=== PATIENT | female | born 1925 | race Caucasian/White ===

== ENCOUNTER 2016-07-15 13:35 | Inpatient (IN) | payer MEDICARE, OTHER ==
[~2016-07-15] VITALS: Ht 162.6 cm; Wt 52.8 kg
[~2016-07-15 13:35] MED LIST: ASC500 PO; CALC1CAP22 PO; CAR120CD PO; CHOL200020 PO; CITA20TA PO; FOS70 PO; GABA100C PO; LEVO100T97 PO; LOSA100T29 PO; MULT-892 PO; OMEG100020 PO; REM15 PO
[2016-07-15 13:47] VITALS: BP 184/95; PULSE 76; O2SAT 95
[2016-07-15] MEDS ORDERED: LEVO88TA4 PO (13:49)
--- NOTE | 2016-07-15 15:04 | DRSVH ---
PROCEDURE: CT BRAIN WITHOUT CONTRAST ([id number]) INDICATIONS: fall TECHNIQUE: Noncontrast 4.5 mm thick angled axial sections acquired from the foramen magnum to the vertex, with c oronal reformats. COMPARISON: None. FINDINGS: Image quality: Diagnostic. Brain: There is no acute intra-axial or extra-axial hemorrhage. No extra-axial fluid collection is i dentified. There is no midline shift or mass effect. The orbits are grossly unremarkable. No large areas of diffusely decreased attenuation are evident within the brain to suggest diffuse cer ebral edema. Scattered focal and confluent areas of low attenuation within the periventricular and d eep white matter of the brain are noted. The ventricles and cortical sulci are prominent. Swelling is incidentally noted without an underlyin g superior orbital fracture evident. Bones: Calvarium and visualized facial bones are grossly intact. Rightward deviation of the bony na vicky septum is noted. There is mild mucosal thickening involving the left maxillary sinus and ethmoid air cells. Otherwise, the imaged paranasal sinuses and mastoid air cells are clear. Left periorbit al soft tissue IMPRESSION: 1. No acute intracranial hemorrhage. 2. Chronic small vessel ischemic changes and age related volume loss. 2. No displaced calvarial fractures. Dictated by: Inocente Noyola M.D. on 07/15/2016 at 13:59 Approved by: Inocente Noyola M.D. on 07/15/2016 at 14:02
[2016-07-15 15:10] LABS: BASOPHILS % (AUTO) 0.1 % (0-3); EOSINOPHILS % (AUTO) 0 % (0-5); MONOCYTES % (AUTO) 10.9 % (4-12); Mean Corpuscular Hemoglobin 29.3 pg (27.0-35.0); Mean Corpuscular Volume 85.1 fL (81-100); NEUTROPHILS % (AUTO) 80.7 % (40-74); Platelet Count 203 bil/L (150-400)
--- NOTE | 2016-07-15 15:12 | ED.REPORT ---
HPI-Trauma Minor / Fall Date of Service July 15, 2016 ED Provider: Francisco Ndiaye MD 89 year old female with a hx of mild dementia, Afib, HTN, hypothyroid and not on blood thinners who presents to the ER via EMS following a fall at home. Pt was found on the ground by her family this morning. It is unknown when she fell last night/this morning as the patient is able to live independently at home. The patient states that it was a mechanical trip and fall and denies LOC. She has also had multiple other falls. Her last one was 2 days ago where she fell walking to her mailbox. Her granddaughter found her at the time. Following the fall she developed bruising to her L forearm and L periorbital area. Pt denies any pain. Her family noticed that she has been increasingly weak in the last two days. Pt sometimes uses a walker and cane as needed, but yesterday even with the walker, she was unable to get out of bed on her own. Nursing Notes Stated Complaint: GLF Chief Complaint: Multiple Trauma/Fall Nursing Notes Reviewed: Yes Allergies: Coded Allergies: FRANCISCO J Inhibitors (Verified Allergy, Unknown, 07/15/16) atenolol (Verified Allergy, Unknown, 07/15/16) atorvastatin (Verified Allergy, Unknown, 07/15/16) hydroxychloroquine (Verified Allergy, Unknown, 07/15/16) Scheduled Ascorbic Acid (Vitamin C) 1,000 Mg Tab.chew 1,000 MG PO QAM Calcium Carbonate (Calcium Carbonate) 600 Mg Tablet 600 MG PO QAM Cholecalciferol (Vitamin D3) (Vitamin D3) 2,000 Unit Tablet 2,000 UNIT PO QAM Citalopram (Citalopram) 10 Mg Tablet 10 MG PO QAM Cyanocobalamin (Vitamin B12) 500 Mcg Tablet 500 MCG PO QAM Denosumab (Prolia) 60 Mg/1 Ml Syringe 60 MG SQ [id number] DUE IN AUGUST 2016 Diltiazem ER (Diltiazem ER) 120 Mg Cap.er.24h 120 MG PO QAM Glucosamine/D3/Boswellia Lisha (Glucosamine Complex Tablet) 1 Each Tablet 1 EACH PO QAM Levothyroxine (Levothyroxine) 88 Mcg Tablet 88 MCG PO QAM Losartan Potassium (Losartan Potassium) 100 Mg Tablet 100 MG PO QAM Multivit with Calcium,Iron,Min (Therapeutic M) 1 Each Tablet 1 EACH PO QAM [place]-3/Dha/Epa/Fish Oil (Fish Oil 1,000 mg Softgel) 1 Each Capsule 1 EACH PO QAM General Time Seen by MD: 15:11 Chief Complaint Fall Hx Obtained From: Patient, Other family..., EMS Arrived By: Ambulance Symptom Duration: Since onset Severity: Current: No pain currently Associated with: Denies: Fever, Headache, Loss of consciousness Similar Sx Previous: Yes Past Medical History Past Medical History Arthritis Diverticulitis Not on anticoagulants Mild dementia Reports: Hypertension Reports: Atrial fibrillation, Depression, Thyroid disease Past Surgical History Reports: Cataract surgery, Cholecystectomy Reports: Tubal ligation Smoking History Never Smoker Social History Alcohol Use: Denies alcohol use Drug Use: Denies drug use Other Social History: Good social support, Lives alone Review of Systems Constitutional: Denies: Fever Musculoskeletal: Denies: Extremity pain, Neck pain Skin: Reports Bruising Neurologic: Reports: Weakness, Denies: Change LOC, Headache Complete sys rev & neg: except as marked. Physical Exam Initial Vital Signs Vital Signs (First) Date Time Temp Pulse Resp B/P Pulse Ox O2 Delivery O2 Flow Rate FiO2 07/15/16 13:47 36.2 76 184/95 95 Room Air Initial VS: Reviewed ENT: Conjunctiva normal, No scleral icterus Respiratory: Breath sounds normal, Clear to auscultation, No respiratory distress Abdomen / GI: Soft, Non-tender Extremities: Vascular intact, Neuro intact Skin: Warm, Dry, No cyanosis Neurologic: Alert, Oriented, Nonfocal Psychiatric: Mood/affect normal, Behavior normal, Normal thought content General/Constitutional: Awake, Alert Neck: Atraumatic, Supple, Full range of motion, No midline vertebral tend Head / Eyes: Normocephalic, PERRL L subacute contusion L eye. Cardiovascular: Heart rate NL, Regular rhythm, Heart sounds NL, No gallop, No murmurs, No rubs, Cap refill not delayed, Peripheral circulation NL Skin: Warm, Dry Some diffuse bruises to all extemities and L abdomen. 1cm superficial abrasion to L buttock with surrounding erythema. subacute bruising of L arm. Neurologic: Oriented X3, Speech NL, No motor deficits, No sensory deficits, CN II - XII intact Interpretation & Diagnostics Lab Results Interpretation Result Diagram: 07/15/16 1500 07/15/16 1500 Test 07/15/16 15:00 07/15/16 16:00 07/15/16 16:13 White Blood Count 14.3th/mm3 (3.8-10.1) Red Blood Count 3.82mil/mm3 (3.90-5.20) Hemoglobin 11.2g/dL (12.0-15.6) Hematocrit 32.5% (35.0-46.0) Mean Corpuscular Volume 85.1fL (81-100) Mean Corpuscular Hemoglobin 29.3pg (27.0-35.0) Mean Corpuscular Hemoglobin Concent 34.5% (32.0-37.0) Red Cell Distribution Width 12.6% (12.3-15.4) Platelet Count 203bil/L (150-400) Neutrophils (%) (Auto) 80.7% (40-74) Lymphocytes (%) (Auto) 8.0% (14-46) Monocytes (%) (Auto) 10.9% (4-12) Eosinophils (%) (Auto) 0% (0-5) Basophils (%) (Auto) 0.1% (0-3) Prothrombin Time 11.5sec (8.1-12.5) Prothromb Time International Ratio 1.07ratio Sodium Level 123mEq/L (134-144) Potassium Level 3.0mEq/L (3.5-5.2) Chloride Level 83mEq/L (97-108) Carbon Dioxide Level 25mmol/L (18-29) Blood Urea Nitrogen 14mg/dL (8-27) Creatinine 0.47mg/dL (0.57-1.00) Estimat Glomerular Filtration Rate 179mL/min (>59) Glucose Level 92mg/dL (60-99) Calcium Level 9.4mg/dL (8.5-10.1) Total Bilirubin 2.2mg/dL (0.0-1.2) Aspartate Amino Transf (AST/SGOT) 61U/L (0-50) Alanine Aminotransferase (ALT/SGPT) 19U/L (0-32) Alkaline Phosphatase 48U/L (25-165) Troponin T < 0.010ug/L (0.0-0.011) Total Protein 7.6g/dL (6.4-8.4) Albumin 3.9g/dL (3.4-5.0) Prealbumin 14mg/dL (20-40) Thyroid Stimulating Hormone (TSH) 5.930uIU/mL (0.450-4.500) Hold Vasquez Top Tube Received (Received) Urine Random Sodium 61mEq/L Urine Color Yellow (YELLOW) Urine Appearance Hazy (CLEAR,HAZY) Urine pH 6.0 (5.0-8.0) Urine Specific [place] 1.020 (1.003-1.035) Urine Protein 100mg/dL (NEG,TRACE) Urine Glucose (UA) Negativemg/dL (NEGATIVE) Urine Ketones Tracemg/dL (NEGATIVE) Urine Occult Blood Moderate (NEGATIVE) Urine Nitrite Negative (NEGATIVE) Urine Bilirubin Negative (NEGATIVE) Urine Urobilinogen Normalmg/dL (NORMAL) Urine Leukocyte Esterase Negative (NEGATIVE) Urine RBC 3-10/hpf (0-2) Urine WBC 6-10/hpf (0-5) Urine Epithelial Cells Occasional/hpf (NONE-MOD) Urine Crystals None seen (NONE SEEN) Urine Bacteria Many/hpf (NONE-FEW) Urine Hyaline Casts None/lpf (NONE) Urine Granular Casts None seen (NONE SEEN) Urine Waxy Casts None seen (NONE SEEN) Urine Red Blood Cell Casts None seen (NONE SEEN) Urine White Blood Cell Casts None seen (NONE SEEN) Urine Mucus None seen (None Seen) Urine Trichomonas None seen (NONE SEEN) Urine Yeast None (NONE SEEN) Urine Culture Reflexed Indicated General Lab Results Interp 1: Labs reviewed ECG Interpretation ECG Interpretation: [place] Interval 259 qTC 544 Time: 14:51 Interpreted by: ED physician Normal ECG Interpretation: Normal rate (71) CT Head Interpretation IMPRESSION: 1. No acute intracranial hemorrhage. 2. Chronic small vessel ischemic changes and age related volume loss. 2. No displaced calvarial fractures. Dictated by: Inocente Noyola M.D. on 07/15/2016 at 13:59 Study: Head CT no contrast Interpretation / Wet Read by: Interpret - Radiologist Re-Eval/Medical Decision Med Decision/Clinical Course 89-year-old female history of dementia but lives autonomously at home and is functional per family presenting with weakness and ground-level fall. The report she has had increasing weakness in the last couple days. Today they found her on the ground unable to get up. She did not lose consciousness per patient or family. They report increased falls last couple days. They also report is been difficult for her to get up last couple days which is new for her. CT head no acute pathology. She has some subcutaneous bruises on all extremities but is not complaining of any pain at this time. Her abdominal exam is benign. Urine with UTI. She has leukocytosis. She will be admitted for a UTI and weakness. Rocephin given, culture sent. Re-Evaluation/Progress #1: Time of Eval: 15:55 Re-Evaluation/Progress Note: Obtained additional history from family. Updated of imaging and labs. Awaiting further lab results. Re-Evaluation/Progress #2: Time of Eval: 16:29 Re-Evaluation/Progress Note: Code status discussed. Pt is DNR. Consultation : Referral / Consult Name: Param Maher MD Consulted With: Hospitalist Call Returned at: 18:14 [employer] Gener[employer] Brush Maker: Will see patient, Agrees with eval, Agrees with plan, Accepts admit Counseled Regarding: Diagnosis, Lab results, Need for admission Discharge & Departure Impression: Primary Impression: UTI (urinary tract infection) Urinary tract infection type: site unspecified Hematuria presence: without hematuria Qualified Code: N39.0 - Urinary tract infection, site not specified Additional Impressions: Weakness Hyponatremia Disposition: ADMITTED TO HOSPITAL Discharge Condition All VS Reviewed: Yes Referrals: La Cardona (PCP) [place] Attestation Portions of this note were transcribed by Lavern Mcgovern. I, (Dr. Francisco Lugo) personally performed the history, physical exam and medical decision- making; I reviewed and confirmed the accuracy of the information in the transcribed note. Signed by: Lavern Mcgovern. [place], 07/15/2016, 1919 copies to: La Cardona Ben M MD July 15, 2016 15:12 Lavern Mcgovern July 15, 2016 15:22
[2016-07-15] MEDS ORDERED: 0.9% Sodium Chloride 500 ML IV ONE (16:23)
[2016-07-15] MEDS ORDERED: cefTRIAXone Inj 2,000 MG in Dextrose 5% Minibag Plus 50 ML IV ONE (16:25)
[2016-07-15 16:27] LABS: APPEARANCE,URINE HAZY (CLEAR,HAZY); COLOR,URINE YELLOW (YELLOW); OCCULT BLOOD,URINE MODERATE (NEGATIVE); UROBILINOGEN,URINE NORMAL (NORMAL)
[2016-07-15 16:35] LABS: INR 1.07 ratio
[2016-07-15] MEDS ORDERED: CYAN500 PO (17:15)
[2016-07-15] MEDS ORDERED: FISH1CAP15 PO (17:15)
[2016-07-15] MEDS ORDERED: DILT-17 PO (17:15)
[2016-07-15] MEDS ORDERED: CITA10TA9 PO (17:15)
[2016-07-15] MEDS ORDERED: MULT-140 PO (17:15)
[2016-07-15] MEDS ORDERED: MIRT15TA6 PO (17:15)
[2016-07-15] MEDS ORDERED: LOSA100T29 PO (17:15)
[2016-07-15] MEDS ORDERED: DENO60DI SQ (17:15)
[2016-07-15] MEDS ORDERED: GLUC-104 PO (17:15)
[2016-07-15] MEDS ORDERED: CALC600T20 PO (17:44)
[2016-07-15] MEDS ORDERED: ASCO100089 PO (17:44)
[2016-07-15] MEDS ORDERED: CHOL200025 PO (17:44)
[2016-07-15] MEDS ORDERED: GLUC-167 PO (17:45)
[2016-07-15] MEDS ORDERED: OMEG-38 PO (17:45)
[2016-07-15] MEDS ORDERED: Ondansetron 2 mg/mL 2 mL Inj IVPUSH PRN (17:55)
[2016-07-15] MEDS ORDERED: Alum-Mag Hydrox-Simeth 30 mL Suspension PO PRN (17:55)
[2016-07-15] MEDS ORDERED: Polyethylene Glycol (PEG) 17 Gm Powder PO PRN (17:55)
[2016-07-15 18:17] VITALS: BP 166/71; PULSE 72; RESP 18; O2SAT 98
[2016-07-15 18:52] VITALS: BP 161/78; PULSE 68; RESP 16; O2SAT 99
--- NOTE | 2016-07-15 19:09 | NUR ---
Arrived on Unit Patient arrived on floor from ER in stable condition at 1840. Patient ambulated from stretcher to bed with 1 person assist. VSS. A&Ox3. Multiple bruises on the left side of the body. Multiple falls over the last few days. Dime size sore on buttock. Patient on P500. Call light and tray table within reach. Will continue to monitor patient hourly.
--- NOTE | 2016-07-15 20:52 | PCM.HPMED ---
Subjective Date of Service July 15, 2016 Primary Provider: Admitting Physician: Param Maher MD Primary Care Physician: La Cardona Attending Physician: Param Maher MD Review of Systems: Gen.: No fevers chills weight loss weight gain Eyes: no visual disturbances or blurring vision HEENT: No nose/throat drainage, no pain in ears or throat, no hearing loss Lymph: No lymph nodes noted Cardiac: No chest pain, orthopnea, PND, palpitations , pedal edema or dyspnea on exertion Pulmonary: no cough, wheezing or bringing up of sputum GI: No anorexia nausea vomiting blood or black in the stool : no dysuria hematuria urinary frequency or decrease in urine output Musculoskeletal: Joint swelling no joint pain no new muscle aches or back pain Neuro: No syncope, seizures no loss of consciousness no new focal weakness, numbness or tingling Psychiatric: New new anxiety insomnia or depression Endocrine: No new heat or cold intolerances polyuria or polydipsia Hematology: No lymphadenopathy or easy bleeding or bruising noted skin: No new rashes, stasis dermatitis Allergies Coded Allergies: FRANCISCO J Inhibitors (Verified Allergy, Unknown, 07/15/16) atenolol (Verified Allergy, Unknown, 07/15/16) atorvastatin (Verified Allergy, Unknown, 07/15/16) hydroxychloroquine (Verified Allergy, Unknown, 07/15/16) Home Medications Ascorbic Acid (Vitamin C) 1,000 Mg Tab.chew 1,000 MG PO QAM Calcium Carbonate (Calcium Carbonate) 600 Mg Tablet 600 MG PO QAM Cholecalciferol (Vitamin D3) (Vitamin D3) 2,000 Unit Tablet 2,000 UNIT PO QAM Citalopram (Citalopram) 10 Mg Tablet 10 MG PO QAM Cyanocobalamin (Vitamin B12) 500 Mcg Tablet 500 MCG PO QAM Denosumab (Prolia) 60 Mg/1 Ml Syringe 60 MG SQ [id number] DUE IN AUGUST 2016 Diltiazem ER (Diltiazem ER) 120 Mg Cap.er.24h 120 MG PO QAM Glucosamine/D3/Boswellia Lisha (Glucosamine Complex Tablet) 1 Each Tablet 1 EACH PO QAM Levothyroxine (Levothyroxine) 88 Mcg Tablet 88 MCG PO QAM Losartan Potassium (Losartan Potassium) 100 Mg Tablet 100 MG PO QAM Multivit with Calcium,Iron,Min (Therapeutic M) 1 Each Tablet 1 EACH PO QAM [place]-3/Dha/Epa/Fish Oil (Fish Oil 1,000 mg Softgel) 1 Each Capsule 1 EACH PO QAM PMH 1. Hypertension. 2. Hypothyroidism. 3. Systemic lupus erythematosus. 4. Rheumatoid arthritis. 5. Vitamin B 12 deficiency. 6. Osteoporosis. 7. History of atrial fibrillation/flutter in 2007. 8. History of iron-deficiency anemia. 9. Gastroesophageal reflux disease. 10. Depression. 11. History of colon diverticulosis found on colonoscopy 3 years ago. 12. Hyperlipidemia. 13. Osteoarthritis. Past Surgical History s/p kyphoplasty 2010 Reports: Cataract surgery, Cholecystectomy Reports: Tubal ligation Smoking History Never Smoker Social History Alcohol Use: Denies alcohol use Drug Use: Denies drug use Other Social History: Good social support, Lives alone Social History Hx Alcohol Use: No Hx Substance Use: No Hx Tobacco Use: No Smoking Status: Never Smoker Exam Vital Signs Vital Sign - Last Date Time Temp Pulse Resp B/P Pulse Ox O2 Delivery O2 Flow Rate FiO2 07/15/16 18:52 36.7 68 16 161/78 99 Room Air Exam Gen.- A+ O 3 no apparent distress. Frail elderly female sitting up in bed having dinner Eyes- open conjunctiva clear, pupils equal nonicteric large bruise over/around left eye, patient is intact to gross exam Mouth- oral mucosa moist, no exudate ENT- ears normal, nose normal Neck- supple/trach midline CVS- RRR no murmur or gallop Lungs- CTA GI- NABS/NT soft Musc- moving 4 no obvious deformity Tenderness left shoulder Neuro- cranial nerves II through XII intact to gross examination, nonfocal Skin- warm and dry, no rashes/lesions/wounds noted Psych- pleasant and appropriate, kind of quiet, memory is not great allows others to speak for her Lab and Diagnostics Result Diagram: 07/15/16 1500 07/15/16 1500 X-Rays, CTs and MRIs CT head without contrast IMPRESSION: 1. No acute intracranial hemorrhage. 2. Chronic small vessel ischemic changes and age related volume loss. 2. No displaced calvarial fractures. Dictated by: Inocente Noyola M.D. on 07/15/2016 at 13:59 12-lead ECG . Sinus rhythm rate 71, QTC 544 ms . Prolonged LA interval . Probable left atrial enlargement . Probable LVH with secondary repol abnrm . Inferior infarct, old . Prolonged QT interval . No previous ECG available for comparison Assessment & Plan 89-year-old female living independently with a great deal of family support fell 2 days ago, has not done well since then and was found down today 07/15. She for her part has a bruise on her face but does not feel any worse for the wear and tear. #Acute? Metabolic Encephalopathy-CT scan of head unremarkable checking B12 and TSH, may simply be from dehydration/UTI #Fall/weakness-PT evaluation and therapy, care management for discharge planning she may need more support. A large family though that is readily available -Check orthostatic hypotension #hyponatremia-NS, check urine sodium, regular diet #Hypokalemia-replacing IV nothing by mouth and checking magnesium #prot caloric malnutirion #UTI versus Urine colonization 6-10 WBCs-treated with Rocephin 1 g IV every 24 beginning 07/15. She does have weakness, hyponatremia and some complaint of urinary frequency the other day HTN-continue home diltiazem and losartan. p afib-Will follow on telemetry patient is not anticoagulated Prophylaxis DVT with SCDs and enoxaparin, GI not indicated From home independent living she is limited intervention she does not want to be intubated however CPR and cardioversion are desired. Param Maher MD July 15, 2016 20:52
[2016-07-15] MEDS ORDERED: 0.9% NaCl + KCl 20 mEq/L 1,000 ML IV SCH (20:55)
--- NOTE | 2016-07-15 21:52 | NUR ---
X Ray Pt. off floor at 2147 to x-ray. Transported via bed by [facility].
[2016-07-15 22:20] VITALS: PULSE 66
--- NOTE | 2016-07-15 22:26 | NUR ---
Pt. back from X-Ray Pt. came back from X-Ray onto floor at 2215.
[2016-07-16] VITALS (7 sets, daily range): BP systolic 144–160; BP diastolic 65–75; PULSE 55–71; RESP 16–18; O2SAT 93–98
--- NOTE | 2016-07-16 03:29 | NUR ---
Activity Pt. denies pain. Pt. ambulates well to bathroom SBA. Pt. has severe bruising on left side. Meiplex applied on dime sized abrasion on buttocks. Turning and skin care being implemented. Will continue to monitor.
[2016-07-16 05:33] LABS: BASOPHILS % (AUTO) 0.2 % (0-3); EOSINOPHILS % (AUTO) 0.6 % (0-5); MONOCYTES % (AUTO) 14.2 % (4-12); Mean Corpuscular Volume 85.6 fL (81-100); NEUTROPHILS % (AUTO) 67.3 % (40-74); Platelet Count 208 bil/L (150-400)
[2016-07-16 06:01] LABS: Magnesium 1.5 mg/dL (1.6-2.6)
--- NOTE | 2016-07-16 09:07 | DRSVH ---
PROCEDURE: X-RAY LEFT SHOULDER, MINIMUM TWO VIEWS ([id number]) INDICATIONS: fall/cough TECHNIQUE: 3 views of the shoulder were acquired. COMPARISON: [facility], CR, SHOULDER MIN 2VW (LT), 09/17/2008, 14:37. FINDINGS: Bones: No definite acute fractures or dislocations. There is an old healed fracture involving the g reater tuberosity. Mild joint narrowing with periarticular osteophyte formation. No suspicious bony lesions. Visualized ribs appear intact. Interstitial opacities present involving the left lung base. Soft tissues: No suspicious soft tissue calcifications. Vascular calcifications indicate atheroscler osis. IMPRESSION: 1. Old healed fracture involving the greater tuberosity of the proximal humerus. 2. Mild acromioclavicular and glenohumeral joint degeneration. 3. Interstitial opacities involving the left lung base. Dictated by: Joe IBANEZ Interpreted: Sanchez Houston MD on 07/16/2016 at 9:03 Transcribed by: FACUNDO on 07/16/2016 at 9:07 Approved by: Sanchez Houston M.D. on 07/16/2016 at 12:03
--- NOTE | 2016-07-16 09:18 | DRSVH ---
Caution: Report not yet finalized and possibly incomplete! PROCEDURE: X-RAY CHEST, TWO VIEWS ([id number]) INDICATIONS: fall/cough TECHNIQUE: 2 views of the chest were acquired. COMPARISON: [facility], , CHEST 2VW, 10/25/2011, 11:54. FINDINGS: Surgical changes and devices: None. Lungs and pleura: No pleural effusions or pneumothorax. Interstitial opacities involve the left jatin g base otherwise lungs are clear. Mediastinum: Mediastinal contours are normal. Heart size is normal. Bones and chest wall: No suspicious bony abnormalities. Soft tissues appear unremarkable. Multiple healed right posterior-lateral rib fractures redemonstrated. Prior kyphoplasty at the L1 level. IMPRESSION: Left basilar interstitial disease suspicious for pneumonia. Dictated by: Joe IBANEZ Interpreted: Sanchez Houston MD on 07/16/2016 at 9:16 Transcribed by: FACUNDO on 07/16/2016 at 9:18
[2016-07-16] MEDS: cefTRIAXone Inj 1,000 MG in Dextrose 5% Minibag Plus 50 ML IV SCH (11:17)
[2016-07-16] MEDS ORDERED: Potassium Chloride 20 mEq SR Tablet PO ONE (11:25)
[2016-07-16] MEDS ORDERED: Magnesium Sulf 4 Gm/100 mL H2O 4 GM in IV Premix 1 EACH IV ONE (11:25)
--- NOTE | 2016-07-16 11:27 | PCM.PNMED ---
Subjective Date of Service July 16, 2016 Subjective Needing to go to the bathroom "again". Other than that no chest pain, no dyspnea, no nausea vomiting, no trouble with pain Exam Vital Signs Vital Sign - Last Date Time Temp Pulse Resp B/P Pulse Ox O2 Delivery O2 Flow Rate FiO2 07/16/16 08:00 64 07/16/16 04:54 36.8 18 158/74 97 Room Air Intake and Output 07/15/16 07/15/16 07/16/16 Cumulative From/Thru 15:00 23:00 07:00 07/15/16 13:35 - 07/16/16 05:56 Intake Total 500 ml 982 ml 1482 ml Balance 500 ml 982 ml 1482 ml Intake Oral 300 ml 300 ml IV Total 500 ml 682 ml 1182 ml # Voids 3 3 # Bowel Movements 0 0 Exam Gen.- A+ O 3 no apparent distress. Frail elderly female sitting up in bed having dinner Eyes- open conjunctiva clear, pupils equal nonicteric large bruise over/around left eye, ENT- ears normal, nose normal, hearing intact Neck- supple/trach midline CVS- RRR Lungs- normal rate nonlabored GI- Musc- moving 4 no obvious deformity Neuro- cranial nerves II through XII intact to gross examination, nonfocal Skin- warm and dry, no rashes/lesions/wounds noted Psych- pleasant and appropriate, sleepy little confused this morning Lab and Diagnostics Result Diagram: 07/16/16 0445 07/16/16 0445 X-Rays, CTs and MRIs CXR Left basilar interstitial disease suspicious for pneumonia. 07/16 L shoulder 2 views 07/16 IMPRESSION: 1. Old healed fracture involving the greater tuberosity of the proximal humerus. 2. Mild acromioclavicular and glenohumeral joint degeneration. 3. Interstitial opacities involving the left lung base suspicious for pneumonia. CT head without contrast IMPRESSION: 1. No acute intracranial hemorrhage. 2. Chronic small vessel ischemic changes and age related volume loss. 2. No displaced calvarial fractures. Dictated by: Inocente Noyola M.D. on 07/15/2016 at 13:59 12-lead ECG . Sinus rhythm rate 71, QTC 544 ms . Prolonged [place] interval . Probable left atrial enlargement . Probable LVH with secondary repol abnrm . Inferior infarct, old . Prolonged QT interval . No previous ECG available for comparison Assessment & Plan 89-year-old female living independently with a great deal of family support fell 2 days ago, has not done well since then and was found down today 07/15. She for her part has a bruise on her face but does not feel any worse for the wear and tear. 07/15 therapy evaluation social work. Work on correcting electrolytes as noted below. There is evidence that perhaps she is probably not eating as well as she could, possibly aspirating and falling more than is actually known. #Cough possible right lower lobe pneumonia by CXR-Rocephin 07/16 I will add azithromycin 07/16-07/19 and get a swallow evaluation 07/16 #hyponatremia, SIADH-NS, urine sodium 61 07/16, regular diet 1.5 L fluid restriction 07/16 continue to monitor #anemia-Hg 10.1 probably believed delusional overnight 07/16 continue to monitor #Acute? Metabolic Encephalopathy-CT scan of head unremarkable checking B12 and TSH, may simply be from dehydration/UTI #Fall/weakness-PT evaluation and therapy, care management for discharge planning she may need more support. A large family though that is readily available -Check orthostatic hypotension -Old fracture left shoulder by x-ray 07/16 #Hypokalemia-replacing IV by mouth and checking magnesium, 3.3 07/16 #Hypomagnesemia- 1.5 07/16 replace and monitor #prot caloric malnutirion #UTI versus Urine colonization 6-10 WBCs-treated with Rocephin 1 g IV every 24 beginning 07/15-. HTN-continue home diltiazem and losartan. p afib-follow telemetry patient is not anticoagulated. No reports of arrhythmia -07/16am Prophylaxis DVT with SCDs and enoxaparin, GI not indicated From home independent living she is limited intervention she does not want to be intubated however CPR and cardioversion are desired. VTE Mechanical Devices: Intermittant Pneumatic CD Param Maher MD July 16, 2016 11:27
[2016-07-16] MEDS ORDERED: 0.9% Sodium Chloride 250 ML ONE (13:14)
--- NOTE | 2016-07-16 13:47 | NUR ---
Evaluation completed. Please go to "Notes" then click on "Assessments and Notes" (bottom left corner of screen). Then select appropriate discipline tab on top of screen.
--- NOTE | 2016-07-16 13:57 | NUR ---
student nurse note Patient is alert and oriented x2; pt is a poor historian. VS stable, tele, pt on room air, labs show low potassium, sodium, and magnesium. Patient is on a 1500ml/day fluid restriction. Patient is a high fall risk and was found on the ground before admission to hospital. Bruising on left side of body (head, shoulder, arm, and hip) due to fall. Skin abrasions on right and left buttocks present before admission. Patient wears glasses to read and see, but complaining that glasses aren't working. History of Afib, but tele shows sinus rhythm during shift. Son and daughter in room and assisting with memory and pt history. IV antibiotics running and LR stopped this morning for fluid restriction. Plan is to continue antibiotics and restore electrolyte balance.
--- NOTE | 2016-07-16 14:45 | NUR ---
Pain/Mentation/Cough Patient reports pain for first time this shift. Paged MD for Tylenol. Patient is pleasantly confused, mildly impulsive, but calls appropriately at most times. Patient has persistent, dry, non productive cough. Family states it has been increasing in frequency to "almost gagging at times" over the last few months. Paged MD for [facility] Eval recommendation.
[2016-07-16] MEDS ORDERED: GLUCOSAMINE PO SCH (15:10)
[2016-07-16] MEDS ORDERED: D3 PO SCH (15:10)
[2016-07-16] MEDS ORDERED: BOSWELLIA SERRA PO SCH (15:10)
[2016-07-16] MEDS ORDERED: [UNRECOGNIZED DRUG - OTHER] PO SCH (15:10)
--- NOTE | 2016-07-16 16:14 | NUR ---
Social Work- Initial Assessment Data: See Initial Assessment. Pt is a 89 year old female admitted 07/15/16 for UTI, Weakness, Hyponatremia per H&P. Pt's insurance is [employer]. Pt's PCP is YANA Hurtado. NOK is Cory, son, and daughter Funmilayo. Pt's readmit score is 3. SYSTEM ANALYST received routine physician consult order, met with pt and Funmilayo [phone], at bedside regarding discharge plan. Pt alert and oriented x3, though was dozing periodically during conversation and was agreeable to SYSTEM ANALYST speaking with Funmilayo. Pt resides in [facility] in a home where she is largely independent with ADLs, though Funmilayo is already anticipating pt will need additional support in the home. Pt has no HH or SNF history. Pt has no LTC or VA benefits. Pt uses a cane at baseline, has a walker available for use if needed. Pt has railings by her stairs, grab bars in the showers. Pt does not drive. Pt had no DPOA/Advance Directive on file, SW encouraged pt and family to bring a copy into the hospital. Pt's daughter is interested in caregivers in the home, as they have already discussed goals of keeping the pt in her home as long as possible. SYSTEM ANALYST discussed caregiving resources, provided Senior Resource Guide to Funmilayo. SYSTEM ANALYST oriented Funmilayo to [facility], including Meals on Wheels, caregiving, financial assistance, etc. Funmilayo and Cory are going to look into private pay caregiving companies, SYSTEM ANALYST encouraged them to begin this process while pt is hospitalized. SYSTEM ANALYST discussed possibility of SNF discharge, Funmilayo is agreeable. SYSTEM ANALYST to follow up with pt and family regarding PT recommendations. Pt likely to discharge to SNF versus private pay caregivers, SW will continue to follow. Assessment: Pt who may require SNF at discharge vs. private pay caregivers. Plan: Senior Resource Guide Provided. SYSTEM ANALYST to follow up with pt and family regarding SNF recommendations, Pt likely to discharge to SNF versus private pay caregivers, SW will continue to follow. MARY Alvarenga Addendum: 07/16/16 at 1618 by SAHIL GONZALEZ SS Amended: Links added.
--- NOTE | 2016-07-16 16:25 | NUR ---
Wound Note Pressure ulcer protocol received, patient seen at bedside. 89 yo female fell at home, bruised and ecchymotic at left forehead and left brow, bruises also noted at left hip and flank. Presents with skin tear at left buttock that is 1.5 cm x 1.5 cm, edges are nearly approximated. No other skin issues noted. Nursing can change dressing (adhesive foam) PRN.
--- NOTE | 2016-07-16 21:57 | NUR ---
PAIN/ACTIVITY: During assessment pt. resting in bed with no c/o pain or discomfort. Later on she requested help to get to the toilet, able to ambulate slowly with the FWW and one person SBA, Voiding without difficulty. No BM at this time. C/o pain when getting in and OOB otherwise pt. comfortable. Given 650 mg of PO Tylenol. On going care.
[2016-07-17] VITALS (7 sets, daily range): BP systolic 144–165; BP diastolic 66–84; PULSE 55–73; RESP 16–18; O2SAT 95–98
[2016-07-17 04:50] LABS: BASOPHILS % (AUTO) 0.3 % (0-3); MONOCYTES % (AUTO) 14.8 % (4-12); Mean Corpuscular Hemoglobin 29.3 pg (27.0-35.0); Mean Corpuscular Volume 86.1 fL (81-100); NEUTROPHILS % (AUTO) 65.2 % (40-74); Platelet Count 224 bil/L (150-400)
[2016-07-17] MEDS ORDERED: Potassium Chloride Inj 30 MEQ in Dextrose 5% 500 ML IV ONE (07:45)
[2016-07-17] MEDS: cefTRIAXone Inj 1,000 MG in Dextrose 5% Minibag Plus 50 ML IV SCH (08:03)
[2016-07-17] MEDS: Omega-3-Acid Ethyl Esters 1 Gm Capsule PO SCH (08:13)
--- NOTE | 2016-07-17 10:20 | NUR ---
Talked with nurse re options of either oral meds or need for PICC. Pt is taking fluids very well (has fluid restriction). The K+ is extremely irritating to the patient. RN to consult .
--- NOTE | 2016-07-17 10:31 | NUR ---
LATRICE signed. Ramya Baker EXHAUSTER
--- NOTE | 2016-07-17 10:42 | NUR ---
IV therapy Called IV therapy r/t pain when running IV potassium to current IV access to right fore arm. per IV therapy recommendation: either PICC line or oral medications." Son at bed side. Paged doctor Cain and notified r/t no access due to IV infiltration and very fragile skin, per orders," oral medications" and aware that no IV access due to increased pain when potassium running. patient and son aware.
--- NOTE | 2016-07-17 10:43 | NUR ---
SNF choice list provided. Ramya Baker MSW
--- NOTE | 2016-07-17 11:12 | NUR ---
Social Work- Readiness for Discharge Data: EMR reviewed. Pt is on day 2 of hospitalization for UTI, weakness, hyponatremia per H&P. Pt is not medically stable for discharge, anticipate 1-2 more days. PT has seen pt 07/16, recommending SNF at this time to progress safety with functional mobility, strength and balance. Pt not able to participate with PT today due to critically low K+ level. CARBIDE TOOL DIE MAKER spoke wit pt and son Cory at bedside this morning regarding discharge plan, PT recommendations. Pt agreeable to rehab stay at SNF. SNF CHOICE LIST PROVIDED. Pt recalled that she has been to [facility] about 7 years ago after a back surgery. Family requested time to consider choices, will call CARBIDE TOOL DIE MAKER. CARBIDE TOOL DIE MAKER received call from daughter Funmilayo regarding pt's SNF choices after consultation with family. 1st choice is [facility]. 2nd choice is [facility]. SW faxed referral, provided access. Paperwork in chart, PASRR in folder. Pt to discharge to SNF pending acceptance, SW will continue to follow. Assessment: Pt for whom SNF is medically necessary. Plan: Referrals made to [facility] and [facility]. Paperwork in chart, PASRR in folder. Pt to discharge to SNF pending acceptance, SW will continue to follow. MARY Alvarenga Addendum: 07/17/16 at 1232 by SAHIL GONZALEZ CARBIDE TOOL DIE MAKER received call from Katiana, ina at [facility], stating that they are able to accept pt with MD Roman to follow. CARBIDE TOOL DIE MAKER updated pt, family, and [facility] regarding pt's decision. All updated and agreeable to plan. Ramya Gonzalez CARBIDE TOOL DIE MAKER
--- NOTE | 2016-07-17 11:17 | NUR ---
HTN BP 165/67, pulse 71. cook paged Dr. Barlow. awaiting call back. patient is asymptomatic.
--- NOTE | 2016-07-17 12:23 | NUR ---
New orders New orders received for Losartan and potassium . BP prior to losartan given 150/68. continue to monitor.
--- NOTE | 2016-07-17 13:52 | PCM.PNMED ---
Subjective Date of Service July 17, 2016 Subjective Patient says she is feeling stronger. No chest pain, no dyspnea, no nausea or vomiting Exam Vital Signs Vital Sign - Last Date Time Temp Pulse Resp B/P Pulse Ox O2 Delivery O2 Flow Rate FiO2 07/17/16 12:31 36.4 71 18 165/84 98 Room Air Intake and Output 07/16/16 07/16/16 07/17/16 Cumulative From/Thru 15:00 23:00 07:00 07/15/16 13:35 - 07/17/16 05:39 Intake Total 230 ml 500 ml 2212 ml Output Total 400 ml 400 ml Balance 230 ml 100 ml 1812 ml Intake Oral 230 ml 500 ml 1030 ml IV Total 1182 ml Output Urine Total 400 ml 400 ml # Voids 4 7 # Bowel Movements 0 0 Exam Gen.- A+ O 3 no apparent distress. Frail elderly female sitting up in bed Eyes- open conjunctiva clear, pupils equal nonicteric large bruise over/around left eye, ENT- ears normal, nose normal, hearing intact Neck- supple/trach midline CVS- RRR no murmur/gallop Lungs- normal rate nonlabored, shallow CTA GI- NABS/NT Musc- moving 4 no obvious deformity Neuro- cranial nerves II through XII intact to gross examination, nonfocal Skin- warm and dry, no rashes/lesions/wounds noted Psych- pleasant and appropriate, seemed relatively lucid Lab and Diagnostics Result Diagram: 07/17/1644607/17/16446 X-Rays, CTs and MRIs CXR Left basilar interstitial disease suspicious for pneumonia. 07/16 L shoulder 2 views 07/16 IMPRESSION: 1. Old healed fracture involving the greater tuberosity of the proximal humerus. 2. Mild acromioclavicular and glenohumeral joint degeneration. 3. Interstitial opacities involving the left lung base suspicious for pneumonia. CT head without contrast IMPRESSION: 1. No acute intracranial hemorrhage. 2. Chronic small vessel ischemic changes and age related volume loss. 2. No displaced calvarial fractures. Dictated by: Inocente Noyola M.D. on 07/15/2016 at 13:59 12-lead ECG . Sinus rhythm rate 71, QTC 544 ms . Prolonged RI interval . Probable left atrial enlargement . Probable LVH with secondary repol abnrm . Inferior infarct, old . Prolonged QT interval . No previous ECG available for comparison Assessment & Plan 89-year-old female living independently with a great deal of family support fell 2 days ago, has not done well since then and was found down today 07/15. She for her part has a bruise on her face but does not feel any worse for the wear and tear. 07/16 therapy evaluation social work. Work on correcting electrolytes as noted below. There is evidence that perhaps she is probably not eating as well as she could, possibly aspirating and falling more than is actually known. 07/17 hyponatremia continuing to improve with fluid restriction, mentation and strength improving. We will transition to by mouth treatment for pneumonia. Planning for discharge 07/18 #Cough possible right lower lobe pneumonia by CXR-Rocephin 07/16 I will add azithromycin 07/16-07/19 and get a swallow evaluation 07/16. Stop Rocephin, start cefuroxime 07/17 #hyponatremia, SIADH-NS, urine sodium 61 07/16, regular diet 1.5 L fluid restriction 07/16 continue to monitor #anemia-Hg 10.1 probably believed delusional overnight 07/16 continue to monitor #Acute? Metabolic Encephalopathy-CT scan of head unremarkable checking B12 and TSH, may simply be from dehydration/UTI #Fall/weakness-PT evaluation and therapy, care management for discharge planning she may need more support. A large family though that is readily available -Check orthostatic hypotension -Old fracture left shoulder by x-ray 07/16 #Hypokalemia-replacing IV by mouth and checking magnesium, 3.3 07/16 #Hypomagnesemia- 1.5 07/16 replace and monitor #prot caloric malnutirion #UTI versus Urine colonization 6-10 WBCs-treated with Rocephin 1 g IV every 24 beginning 07/15-. HTN-continue home diltiazem and losartan. p afib-follow telemetry patient is not anticoagulated. No reports of arrhythmia -07/16am Prophylaxis DVT with SCDs and enoxaparin, GI not indicated From home independent living she is limited intervention she does not want to be intubated however CPR and cardioversion are desired. VTE Mechanical Devices: Intermittant Pneumatic CD Param Maher MD July 17, 2016 13:51
--- NOTE | 2016-07-17 15:13 | NUR ---
NUTRITION ASSESSMENT: ASSESS:89 YO female admitted with UTI, weakness and hyponatremia, status post fall 07/15. There is evidence that she is probably not eating as well as she could, possibly aspirating and falling more than is actually known. Swallow evaluation pending at this time. PO intake excellent, 75-100% trays. There is a notation of malnutrition. The patient has lost 4.55 kg x 4 years, 3 months. Sales Representative Education Courses noting skin tear L. buttock. Hyponatremia improved with fluid restriction. Mentation and strength are noted to be improved as well. Code status: full. PMHx:HTN, hypothyroid, lupus, RA, osteoporosis, A-fib, CRISTIAN, GERD, depression, diverticulitis, dyslipidemia. DIET:General, fluid restriction, pending swallow evaluation. PO intake 75-100% trays. LABS: Reviewed. Na 127, K+ 3.2, Chloride 88. MEDICATIONS: Reviewed. Synthroid, MVI. NUTRITION FOCUSED PHYSICAL ASSESSMENT: GI symptoms / stool: No BM x 2 D.Ayo: 18. Skin Integrity: Skin tear L. buttock. ANTHROPOMETRICS: Current Wt: 50.0 kgBMI: 18.0 kg/m2.Admit weight: 50.0 kg. IBW: 54.5 kg (91.7% IBW) ESTIMATED NEEDS (UNDERWEIGHT): Calories: 1500 - 1750 kcal (30 - 35 kcal / kg BW) Protein: 60 - 75 g protein (1.2 - 1.5 g / kg BW) Fluid: Approx. 1250 mL (25 mL / kg BW) NUTRITION DIAGNOSIS: 1)Chewing / swallowing difficulties related to chronic aspiration, as evidenced by requirement for swallow evaluation. 2) Inadequate oral intake related to inability to consume sufficient energy, as evidenced by 4.55 kg weight loss x 4 years, 3 months. INTERVENTION: 1) Will add supplements to trays once Speech Therapy determines texture tolerance. MONITOR/EVALUATE: Diet advance / tolerance, PO intake, labs, GI/nutrition status. Follow up per moderate nutrition risk guidelines.
--- NOTE | 2016-07-17 18:22 | NUR ---
Student nurse shift note Pt A&OX3, poor historian and repeats. Pleasant and appropriate in conversation. 1PA-FWW to bathroom. Pt tele due to history of Afib, tele team relayed "sinus rhythm in the 80's non conductive PAC". VS stable, but pt hypertensive until administered home med of Losartan. BP went from 165/67, to 148/66. Patient complaining of IV discomfort early in shift, so Doctor ordered for it to be DC'ed. Patient then switched to PO meds and has no current IV access.Skin tears to sacrum. Dressing s/d/i and no dressing change during shift. Patient on 1500ml.day fluid restriction and complaining of dry mouth; pt maxed out day shift fluid allotment and has been given oral swabs to assist. Labs are still off with WBC's improving but at 10.6, Sodium low at 127, potassium low at 3.2, and magnesium is now in range. Plan is to have pt discharge to SNF tomorrow afternoon. Patient's son and daughter live nearby and visit often and able to assist with history. Addendum: 07/17/16 at 1836 by WILMER TRUONG Pain- pt report moderate pain to left shoulder at rest and upon movement. Administered Tylenol PO and patient reports no pain. Skin- Bruising from head to toe on left side due to recent fall (2nd to UTI).
--- NOTE | 2016-07-17 18:24 | NUR ---
Mentation Patient is alert with mild confusion and forgetful. Able to make needs known. C/o pain to left shoulder and PRN Tylenol given by student nurse with effective results. patient up for all meals in chair. Sebastian bed and chair alarm on for safety due to most recent fall and history of falls. Ambulates using FWW to the bathroom with out difficulty breathing or shortness of breath. Stable oxygen room air. Deneis chest pain or chest discomfort. No sign and symptoms of respiratory distress noted. Dressing to sacrum is clean dry and intact. Notified doctor Cain for elevated BP and anti hypertensive given as ordered and follow up BP 148/66. patient is asymptomatic. Currently eating dinner in chair and family at bed side. stable mood. Continue to monitor pain, Vital signs, safety, and comfort.
[2016-07-18] VITALS (8 sets, daily range): BP systolic 106–160; BP diastolic 55–78; PULSE 65–81; RESP 16–20; O2SAT 96–99
--- NOTE | 2016-07-18 02:16 | NUR ---
PAIN; tylenol for c/o headache with relief. Up to bathroom to void per walker/standby assist. Confused at times. Easily oriented. Pt talking about going to [facility] [place] tomorrow.
[2016-07-18 05:31] LABS: BASOPHILS % (AUTO) 0.5 % (0-3); EOSINOPHILS % (AUTO) 3.1 % (0-5); MONOCYTES % (AUTO) 13.7 % (4-12); Mean Corpuscular Hemoglobin 29.6 pg (27.0-35.0); Mean Corpuscular Volume 88.5 fL (81-100); NEUTROPHILS % (AUTO) 64.2 % (40-74); Platelet Count 237 bil/L (150-400)
[2016-07-18 05:58] LABS: Magnesium 2.1 mg/dL (1.6-2.6)
[2016-07-18] MEDS: Omega-3-Acid Ethyl Esters 1 Gm Capsule PO SCH (08:50)
--- NOTE | 2016-07-18 09:53 | NUR ---
Pt evaluated by ST on 07/17/16. Placed on a general/thin diet. Per RN, the pt is tolerating this diet well. ST will sign off.
--- NOTE | 2016-07-18 11:52 | PCM.PNMED ---
Subjective Date of Service July 18, 2016 Subjective pt denied n, v had mild STARR but alert and orientedx3 at baseline communicative, mildly lightheaded but able to walk with walker to the bathroom with steady gait Exam Vital Signs Vital Sign - Last Date Time Temp Pulse Resp B/P Pulse Ox O2 Delivery O2 Flow Rate FiO2 07/18/16 09:57 36.4 66 20 160/55 99 Room Air Intake and Output 07/17/16 07/17/16 07/18/16 Cumulative From/Thru 15:00 23:00 07:00 07/15/16 13:35 - 07/18/16 05:17 Intake Total 1230 ml 500 ml 3942 ml Output Total 300 ml 940 ml 1640 ml Balance 930 ml -440 ml 2302 ml Intake Oral 1160 ml 500 ml 2690 ml IV Total 70 ml 1252 ml Output Urine Total 300 ml 940 ml 1640 ml # Voids 4 5 16 # Bowel Movements 1 0 1 Exam frail, elderly lady, pleasant no JVD, MMM, no LAD RRR, nl s1, s2 no mrg CTAB, no w,c S,ND,NT,normoactive BS+ warm, no edema, pulses 2/2 Lab and Diagnostics Result Diagram: 07/18/168 07/18/168 X-Rays, CTs and MRIs CXR Left basilar interstitial disease suspicious for pneumonia. 07/16 L shoulder 2 views 07/16 IMPRESSION: 1. Old healed fracture involving the greater tuberosity of the proximal humerus. 2. Mild acromioclavicular and glenohumeral joint degeneration. 3. Interstitial opacities involving the left lung base suspicious for pneumonia. CT head without contrast IMPRESSION: 1. No acute intracranial hemorrhage. 2. Chronic small vessel ischemic changes and age related volume loss. 2. No displaced calvarial fractures. Dictated by: Inocente Noyola M.D. on 07/15/2016 at 13:59 12-lead ECG . Sinus rhythm rate 71, QTC 544 ms . Prolonged VT interval . Probable left atrial enlargement . Probable LVH with secondary repol abnrm . Inferior infarct, old . Prolonged QT interval . No previous ECG available for comparison Assessment & Plan 89-year-old female living independently with a great deal of family support fell 2 days ago, has not done well since then and was found down today 07/15. She for her part has a bruise on her face but does not feel any worse for the wear and tear. 07/16 therapy evaluation social work. Work on correcting electrolytes as noted below. There is evidence that perhaps she is probably not eating as well as she could, possibly aspirating and falling more than is actually known. 07/17 hyponatremia continuing to improve with fluid restriction, mentation and strength improving. We will transition to by mouth treatment for pneumonia. Planning for discharge 07/18 acute, active #hyponatremia, SIADH-NS, urine sodium 61 07/16, regular diet 1.5 L fluid restriction 07/16 continue to monitor -132 today, improving with fluid restriction, will continue upon dc #Cough possible right lower lobe pneumonia by CXR-Rocephin 07/16 I will add azithromycin 07/16-07/19 and get a swallow evaluation 07/16. Stop Rocephin, start cefuroxime 07/17 -as per son, patient, this chronic cough, never productive, PCT today 0.06 very unremarkable, no hypoxia, -given low suspicion for acute bacterial PNA, abx were stopped today #hypothyroidism, TSH10.3 on LT4 88mcg, pt used to be on 100, 112, dosage changed 1yr ago, will increase to 100mcg given TSH level, recheck with PCP in 6- 8wks chronic, stable, resolved #anemia-Hg 10.1 probably believed delusional overnight 07/16 continue to monitor #Acute? Metabolic Encephalopathy-CT scan of head unremarkable checking B12 and TSH, may simply be from dehydration/UTI, seems resolved #Fall/weakness- likely in the setting of severe hyponatremia, hypothyroidism. -[facility] tomorrow per PT eval. good family support -Old fracture left shoulder by x-ray 07/16 #Hypokalemia-replacing IV by mouth and checking magnesium, 3.3 07/16 #Hypomagnesemia- 1.5 07/16 replace and monitor #prot caloric malnutirion #UTI versus Urine colonization 6-10 WBCs-treated with Rocephin 1 g IV every 24 beginning 07/15-. final UCX mixed sarthak. HTN-continue home diltiazem and losartan. p afib-follow telemetry patient is not anticoagulated. No reports of arrhythmia -07/16am Prophylaxis DVT with SCDs and enoxaparin, GI not indicated From home independent living, dispo: [facility] tomorrow she is limited intervention she does not want to be intubated however CPR and cardioversion are desired. VTE Mechanical Devices: Intermittant Pneumatic CD Time spent 35min Ashwin Starr MD July 18, 2016 10:50
--- NOTE | 2016-07-18 18:29 | NUR ---
Mentation patient is alert with mild confusion and forgetfulness. No sign and symptoms of pain noted or reported by patient. Tolerating well meals with out difficulty. Speech therapy and physical therapy seen patient this shift. patient up for meals in chair. ambulation to the bathroom using FWW. patient shift total PO intake 1000cc. Family at bed side. Uses call light appropriately and with in reach for safety. Bed linda alarm in place. Continue to monitor.
[2016-07-19 00:11] VITALS: BP 159/80; PULSE 79; RESP 16; O2SAT 98
--- NOTE | 2016-07-19 03:17 | NUR ---
ACTIVITY; up to the bathroom with standby assistance and per walker- fairly steady on her feet.
[2016-07-19 05:49] VITALS: BP 151/78; PULSE 74; RESP 18; O2SAT 96
[2016-07-19 06:05] LABS: BASOPHILS % (AUTO) 0.4 % (0-3); EOSINOPHILS % (AUTO) 3.3 % (0-5); MONOCYTES % (AUTO) 12.2 % (4-12); Mean Corpuscular Hemoglobin 29.8 pg (27.0-35.0); Mean Corpuscular Volume 88.8 fL (81-100); NEUTROPHILS % (AUTO) 68.2 % (40-74); Platelet Count 262 bil/L (150-400)
[2016-07-19 06:27] LABS: Magnesium 1.8 mg/dL (1.6-2.6); Phosphorus 3.7 mg/dL (2.5-4.9)
[2016-07-19] MEDS: Omega-3-Acid Ethyl Esters 1 Gm Capsule PO SCH (08:12)
--- NOTE | 2016-07-19 10:08 | NUR ---
Faxed PASSR to [facility]. Copy in chart.
[2016-07-19 10:15] VITALS: PULSE 63
--- NOTE | 2016-07-19 11:57 | NUR ---
Discharge Patient ambulated home with family via personal vehicle. Patient got dressed independently and was ambulating independently in room and in hallway. Mild pain relieved from tylenol. IV discontinued with catheter intact and patient belongings went home with patient. Patient and family was educated on discharge paperwork and new prescription. Instructed to follow up with surgeon as planned for tomorrow and primary care provider in two weeks. Addendum: 07/19/16 at 1202 by KATIE GRANDA RN Error in documentation. Wrong patient.
--- NOTE | 2016-07-19 12:20 | PCM.DIMED ---
Discharge Instructions Date of Service July 19, 2016 Dates of Hospitalization July 15, 2016 at 18:14 Discharge Diagnosis Discharge Diagnosis Hyponatremia Medication Instructions - take medications as prescribed Test Results [id number] Patient Name: TARIQ DIXON MR#: [id number] Location: [facility] [place] Ordering Phys: Param Maher MD Date of Service: 07/15/162052 PROCEDURE: X-RAY LEFT SHOULDER, MINIMUM TWO VIEWS ([id number]) INDICATIONS: fall/cough TECHNIQUE: 3 views of the shoulder were acquired. COMPARISON: [facility], CR, SHOULDER MIN 2VW (LT), 09/17/2008 , 14:37. FINDINGS: Bones: No definite acute fractures or dislocations. There is an old healed fracture involving the greater tuberosity. Mild joint narrowing with periarticular osteophyte formation. No suspicious bony lesions. Visualized ribs appear intact. Interstitial opacities present involving the left lung base. Soft tissues: No suspicious soft tissue calcifications. Vascular calcifications indicate atherosclerosis. IMPRESSION: 1. Old healed fracture involving the greater tuberosity of the proximal humerus. 2. Mild acromioclavicular and glenohumeral joint degeneration. 3. Interstitial opacities involving the left lung base. Diet No restrictions Activity Outpatient Physical Therapy Call your provider Fever or Chills, Shortness of breath Patient Instructions Take medications as prescribed Follow up with you primary care doctor as needed Follow-up with PCP in: Other (as needed ) Attending's Statement Patient was seen and examined by me today. Currently patient is stable for discharge. Does not require additional antibiotics. Patient will follow up with her Primary care physician as needed. Patient was evaluated by speech and swallow which deemed the patient stable enough for a regular diet. Patient will require nutritional supplementation however with ever meal. Theo Valverde MD July 19, 2016 12:20
--- NOTE | 2016-07-19 12:27 | PCM.DC.MED ---
Discharge Summary Date of Service July 19, 2016 Dates of Hospitalization Date of Hospital Admission July 15, 2016 at 18:14 Date of Discharge: July 19, 2016 Providers: Admitting Physician: Param Maher MD Primary Care Physician: La Cardona Attending Physician: Param Maher MD Diagnosis at Time of Discharge Diagnosis at Time of Discharge Hyponatremia Consultations none Procedures XRay, CTs & MRIs CXR Left basilar interstitial disease suspicious for pneumonia. 07/16 L shoulder 2 views 07/16 IMPRESSION: 1. Old healed fracture involving the greater tuberosity of the proximal humerus. 2. Mild acromioclavicular and glenohumeral joint degeneration. 3. Interstitial opacities involving the left lung base suspicious for pneumonia. CT head without contrast IMPRESSION: 1. No acute intracranial hemorrhage. 2. Chronic small vessel ischemic changes and age related volume loss. 2. No displaced calvarial fractures. Dictated by: Inocente Noyola M.D. on 07/15/2016 at 13:59 ECG 12 Lead . Sinus rhythm rate 71, QTC 544 ms . Prolonged VA interval . Probable left atrial enlargement . Probable LVH with secondary repol abnrm . Inferior infarct, old . Prolonged QT interval . No previous ECG available for comparison Hospital Course 89-year-old female living independently with a great deal of family support fell 2 days ago, has not done well since then and was found down today 07/15. She for her part has a bruise on her face but does not feel any worse for the wear and tear. 07/16 therapy evaluation social work. Work on correcting electrolytes as noted below. There is evidence that perhaps she is probably not eating as well as she could, possibly aspirating and falling more than is actually known. 07/17 hyponatremia continuing to improve with fluid restriction, mentation and strength improving. We will transition to by mouth treatment for pneumonia. Planning for discharge 07/18 acute, active #hyponatremia, SIADH-NS, urine sodium 61 07/16, regular diet 1.5 L fluid restriction 07/16 continue to monitor -132 today, improving with fluid restriction, will continue upon dc #Cough possible right lower lobe pneumonia by CXR-Rocephin 07/16 I will add azithromycin 07/16-07/19 and get a swallow evaluation 07/16. Stop Rocephin, start cefuroxime 5/13 -as per son, patient, this chronic cough, never productive, PCT today 0.06 very unremarkable, no hypoxia, -given low suspicion for acute bacterial PNA, abx were stopped today #hypothyroidism, TSH10.3 on LT4 88mcg, pt used to be on 100, 112, dosage changed 1yr ago, will increase to 100mcg given TSH level, recheck with PCP in 6- 8wks chronic, stable, resolved #anemia-Hg 10.1 probably believed delusional overnight 07/16 continue to monitor #Acute? Metabolic Encephalopathy-CT scan of head unremarkable checking B12 and TSH, may simply be from dehydration/UTI, seems resolved #Fall/weakness- likely in the setting of severe hyponatremia, hypothyroidism. -[facility] tomorrow per PT eval. good family support -Old fracture left shoulder by x-ray 07/16 #Hypokalemia-replacing IV by mouth and checking magnesium, 3.3 07/16 #Hypomagnesemia- 1.5 07/16 replace and monitor #prot caloric malnutirion #UTI versus Urine colonization 6-10 WBCs-treated with Rocephin 1 g IV every 24 beginning 07/15-. final UCX mixed sarthak. HTN-continue home diltiazem and losartan. p afib-follow telemetry patient is not anticoagulated. No reports of arrhythmia -07/16am Prophylaxis DVT with SCDs and enoxaparin, GI not indicated From home independent living, dispo: [facility] tomorrow she is limited intervention she does not want to be intubated however CPR and cardioversion are desired. Exam Vital Signs (Last) Date Time Temp Pulse Resp B/P Pulse Ox O2 Delivery O2 Flow Rate FiO2 07/19/16 10:15 63 07/19/16 05:49 36.8 18 151/78 96 Room Air Exam HEENT: PERRLA, slight brusing of the left orbital, moist mucous membranes Pulm: Clear to auscultation bilaterally, no cough noted CV: Regular rate, no murmurs rubs or gallops Abd: Soft nontender, tolerating food without difficulty Ext: Pain in the shoulder noted on extention, no other abnormality noted Neuro: No focal neurological deficits Test 07/15/16 15:00 07/15/16 16:00 07/15/16 16:13 07/16/16 04:45 Prothrombin Time 11.5sec (8.1-12.5) Prothromb Time International Ratio 1.07ratio Troponin T < 0.010ug/L (0.0-0.011) Hold Vasquez Top Tube Received (Received) Urine Random Sodium 61mEq/L Urine Color Yellow (YELLOW) Urine Appearance Hazy (CLEAR,HAZY) Urine pH 6.0 (5.0-8.0) Urine Specific [place] 1.020 (1.003-1.035) Urine Protein 100mg/dL (NEG,TRACE) Urine Glucose (UA) Negativemg/dL (NEGATIVE) Urine Ketones Tracemg/dL (NEGATIVE) Urine Occult Blood Moderate (NEGATIVE) Urine Nitrite Negative (NEGATIVE) Urine Bilirubin Negative (NEGATIVE) Urine Urobilinogen Normalmg/dL (NORMAL) Urine Leukocyte Esterase Negative (NEGATIVE) Urine RBC 3-10/hpf (0-2) Urine WBC 6-10/hpf (0-5) Urine Epithelial Cells Occasional/hpf (NONE-MOD) Urine Crystals None seen (NONE SEEN) Urine Bacteria Many/hpf (NONE-FEW) Urine Hyaline Casts None/lpf (NONE) Urine Granular Casts None seen (NONE SEEN) Urine Waxy Casts None seen (NONE SEEN) Urine Red Blood Cell Casts None seen (NONE SEEN) Urine White Blood Cell Casts None seen (NONE SEEN) Urine Mucus None seen (None Seen) Urine Trichomonas None seen (NONE SEEN) Urine Yeast None (NONE SEEN) Urine Culture Reflexed Indicated Vitamin B12 Level 1742pg/mL (211-946) Thyroid Stimulating Hormone (TSH) 10.310uIU/mL (0.450-4.500) Free Thyroxine 0.95ng/dL (0.82-1.77) Test 07/18/16 04:48 07/19/16 04:47 Prealbumin 12mg/dL (20-40) Procalcitonin 0.06ng/mL (0.00-0.08) White Blood Count 11.8th/mm3 (3.8-10.1) Red Blood Count 3.49mil/mm3 (3.90-5.20) Hemoglobin 10.4g/dL (12.0-15.6) Hematocrit 31.0% (35.0-46.0) Mean Corpuscular Volume 88.8fL (81-100) Mean Corpuscular Hemoglobin 29.8pg (27.0-35.0) Mean Corpuscular Hemoglobin Concent 33.5% (32.0-37.0) Red Cell Distribution Width 13.8% (12.3-15.4) Platelet Count 262bil/L (150-400) Neutrophils (%) (Auto) 68.2% (40-74) Lymphocytes (%) (Auto) 15.3% (14-46) Monocytes (%) (Auto) 12.2% (4-12) Eosinophils (%) (Auto) 3.3% (0-5) Basophils (%) (Auto) 0.4% (0-3) Sodium Level 131mEq/L (134-144) Potassium Level 4.4mEq/L (3.5-5.2) Chloride Level 92mEq/L (97-108) Carbon Dioxide Level 27mmol/L (18-29) Blood Urea Nitrogen 15mg/dL (8-27) Creatinine 0.57mg/dL (0.57-1.00) Estimat Glomerular Filtration Rate 143mL/min (>59) Glucose Level 82mg/dL (60-99) Calcium Level 9.1mg/dL (8.5-10.1) Phosphorus Level 3.7mg/dL (2.5-4.9) Magnesium Level 1.8mg/dL (1.6-2.6) Total Bilirubin 0.5mg/dL (0.0-1.2) Aspartate Amino Transf (AST/SGOT) 29U/L (0-50) Alanine Aminotransferase (ALT/SGPT) 17U/L (0-32) Alkaline Phosphatase 47U/L (25-165) Total Protein 6.8g/dL (6.4-8.4) Albumin 3.5g/dL (3.4-5.0) Discharge Medications Discharge Medications Ascorbic Acid (Vitamin C) 1,000 Mg Tab.chew 1,000 MG PO QAM (Reported) Calcium Carbonate (Calcium Carbonate) 600 Mg Tablet 600 MG PO QAM (Reported) Cholecalciferol (Vitamin D3) (Vitamin D3) 2,000 Unit Tablet 2,000 UNIT PO QAM ( Reported) Citalopram (Citalopram) 10 Mg Tablet 10 MG PO QAM (Reported) Cyanocobalamin (Vitamin B12) 500 Mcg Tablet 500 MCG PO QAM (Reported) Denosumab (Prolia) 60 Mg/1 Ml Syringe 60 MG SQ [id number] (Reported) DUE IN AUGUST 2016 Diltiazem ER (Diltiazem ER) 120 Mg Cap.er.24h 120 MG PO QAM (Reported) Glucosamine/D3/Boswellia Lisha (Glucosamine Complex Tablet) 1 Each Tablet 1 EACH PO QAM (Reported) Levothyroxine (Levothyroxine) 88 Mcg Tablet 88 MCG PO QAM (Reported) Losartan Potassium (Losartan Potassium) 100 Mg Tablet 100 MG PO QAM (Reported) Multivit with Calcium,Iron,Min (Therapeutic M) 1 Each Tablet 1 EACH PO QAM ( Reported) [place]-3/Dha/Epa/Fish Oil (Fish Oil 1,000 mg Softgel) 1 Each Capsule 1 EACH PO QAM (Reported) Additional med instructions - take medications as prescribed Followup Plan Discharge Diet: No restrictions Discharge Activity: Outpatient Physical Therapy Patient Instructions Take medications as prescribed Follow up with you primary care doctor as needed Follow-up with PCP in: Other (as needed ) Theo Valverde MD July 19, 2016 12:27
[2016-07-19 12:37] VITALS: BP 168/80; PULSE 75; RESP 18; O2SAT 98
--- NOTE | 2016-07-19 12:50 | NUR ---
Social Work: Discharge D: EMR reviewed. Pt is on day 4 of hospitalization. SW met with pt to confirm pt will transport to [facility] today at 2pm via [facility]. SW placed T/C to pt's son Cory and confirmed transport time. Pt and family agreeable to discharge plan. RN updated on transport time. Transport packet left at nurses station. SW will continue to follow. A: Pt for whom a SNF has been deemed medically necessary for PT and RN. P: Pt to discharge to [facility] today at 2pm via [facility]. Pt and family updated on transport time. Pt and family agreeable to plan. MARY Castelan
--- NOTE | 2016-07-19 12:50 | NUR ---
Faxed orders to [facility] and placed copy in chart. [facility] will be the one to do the transport at 1400. Updated BEHAVIORAL INTERVENTION SPECIALIST
--- NOTE | 2016-07-19 13:58 | NUR ---
Report Called Report given to Cherelle in admissions at [facility] over the phone.
--- NOTE | 2016-07-19 14:15 | NUR ---
Discharge Patient was alert and oriented during shift, ambulating to bathroom with front wheeled walker SBA, and using call light appropriately. Patient stated she felt weaker than normal this morning and had discomfort in her left arm/shoulder which was relieved with tylenol. Patient discharged at 1410 via wheelchair by transport person and with her personal belongings. Family accompanied patient and transport person. Patient needed help getting dressed, no IV site was present, telemetry discontinued.
== END 2016-07-19 14:10 | DRG 643 ==
LOC: SED 13:35 → OSC 18:14
PROVIDERS: ADMIT Hospitalist; ATTEND Hospitalist
DX: E22.2 Syndrome of inappropriate secretion of antidiuretic hormone (principal); G93.41 Metabolic encephalopathy; E43 Unspecified severe protein-calorie malnutrition; Z68.1 Body mass index [BMI] 19.9 or less, adult; N39.0 Urinary tract infection, site not specified; W18.30XA Fall on same level, unspecified, initial encounter; Z91.81 History of falling; Y93.9 Activity, unspecified; Y92.019 Unspecified place in single-family (private) house as the place of occurrence of the external cause; Y99.9 Unspecified external cause status; E87.6 Hypokalemia; I10 Essential (primary) hypertension; E03.9 Hypothyroidism, unspecified; D64.9 Anemia, unspecified; R53.1 Weakness

== ENCOUNTER 2016-09-27 08:23 | Inpatient (IN) | payer MEDICARE, OTHER ==
[~2016-09-27] VITALS: Ht 152.4 cm; Wt 50.7 kg
[~2016-09-27 08:23] MED LIST changes: -ASC500 PO; +ASCO100089 PO; -CALC1CAP22 PO; +CALC600T20 PO; -CAR120CD PO; -CHOL200020 PO; +CHOL200025 PO; +CITA10TA9 PO; -CITA20TA PO; +CYAN500 PO; +DENO60DI SQ; +DILT-17 PO; -FOS70 PO; -GABA100C PO; +GLUC-167 PO; -LEVO100T97 PO; +LEVO88TA4 PO; +MULT-140 PO; -MULT-892 PO; +OMEG-38 PO; -OMEG100020 PO; -REM15 PO
[2016-09-27 08:42] VITALS: BP 120/47; PULSE 94; RESP 21; O2SAT 99
--- NOTE | 2016-09-27 09:10 | ED.REPORT ---
HPI-Trauma Minor / Fall Date of Service Sep 27, 2016 ED Provider: Dimple Solano MD Patient is an 89 year old female with a history of dementia, hypertension, rheumatoid arthritis and falls who presents to the ED via EMS due to a fall with unknown onset. The patient was found laying near her bed by staff at the [facility] this morning. Patient does not remember falling but complains of right shoulder pain. She denies abdominal pain, shortness of breath or rash. Nursing Notes Stated Complaint: GROUND LEVEL FALL Chief Complaint: Multiple Trauma/Fall Nursing Notes Reviewed: Yes Allergies: Coded Allergies: iodine (Verified Allergy, Mild, RASH AND IRRITATION, 09/27/16) FRANCISCO J Inhibitors (Verified Allergy, Unknown, 09/27/16) atenolol (Verified Allergy, Unknown, 09/27/16) atorvastatin (Verified Allergy, Unknown, 09/27/16) hydroxychloroquine (Verified Allergy, Unknown, 09/27/16) Scheduled Ascorbate Calcium (Vitamin C) 500 Mg Tablet 1,000 MG PO DAILY Calcium Carbonate (Calcium) 600 Mg Tablet 600 MG PO DAILY Cholecalciferol (Vitamin D3) (Vitamin D3) 2,000 Unit Tablet 2,000 UNIT PO QAM Citalopram (Citalopram) 10 Mg Tablet 10 MG PO QAM Cyanocobalamin (Vitamin B12) 500 Mcg Tablet 500 MCG PO QAM Denosumab (Prolia) 60 Mg/1 Ml Syringe 60 MG SQ [id number] Diltiazem ER (Diltiazem ER) 120 Mg Cap.er.24h 120 MG PO QAM Gluc/Eyal-MSM#1/Vit C/James/Bor (Fcxsaqi-Jsebw-GCB Complex Cplt) 1 Each Tablet 1 EACH PO DAILY Levothyroxine (Levothyroxine) 112 Mcg Tablet 112 MCG PO DAILY Losartan Potassium (Losartan Potassium) 100 Mg Tablet 100 MG PO QAM Multivitamin (Once Daily) 1 Each Tablet 1 EACH PO DAILY [place]-3/Dha/Epa/Fish Oil (Fish Oil 1,000 mg Softgel) 1 Each Capsule 1 EACH PO QAM Tamsulosin (Flomax) 0.4 Mg Capsule 0.4 MG PO HS Scheduled PRN Acetaminophen (Acetaminophen) 325 Mg Tablet 325-650 MG PO q4 hours PRN PRN For Pain Bisacodyl (Dulcolax Rectal) 10 Mg Supp.rect 10 MG RC DAILY PRN PRN no bm x 12 shifts Magnesium Hydroxide (Milk of Magnesia) 400 Mg/5 Ml Oral.susp 30 ML PO prn PRN PRN no BM in 9 shifts. Na Phos,M-B/Na Phos,Di-Ba (Fleet Enema) 133 Ml Enema 133 ML RC prn PRN PRN no BM x 15 shifts. General Time Seen by MD: 09:09 Chief Complaint Fall Hx Obtained From: Patient Arrived By: Ambulance Onset Occurred: Onset unknown Location: Shoulder right Quality: Painful Severity: Current: Moderate Recent Healthcare: Recent doctor visit, Recent hospitalization Similar Sx Previous: Yes Past Medical History Past Medical History Notes: Code status: DNR Past Medical History Rheumatoid arthritis Diverticulitis Not on anticoagulants Mild dementia Reports: Hypertension Reports: Atrial fibrillation, Depression, Thyroid disease Past Surgical History Reports: Cataract surgery, Cholecystectomy Reports: Tubal ligation Smoking History Never Smoker Social History lives on the independent side at [facility] Alcohol Use: Denies alcohol use Drug Use: Denies drug use Other Social History: Good social support, Lives alone Ambulatory Status Independent Review of Systems Constitutional: Denies: Chills, Fever Respiratory: Denies: Non-productive cough, Shortness of breath Musculoskeletal: Reports: Extremity pain (right shoulder) Skin: Denies Itching, Denies Rash Neurologic: Reports: Confusion Complete sys rev & neg: except as marked. GI: Denies: Abdominal pain Physical Exam Initial Vital Signs Vital Signs (First) Date Time Temp Pulse Resp B/P Pulse Ox O2 Delivery O2 Flow Rate FiO2 09/27/16 08:42 36.6 94 21 120/47 99 Room Air Initial VS: Reviewed General/Constitutional: Awake, Alert Neck: Atraumatic, Supple, Full range of motion Head / Eyes: Normocephalic, PERRL, EOMI redness to the right cheek Respiratory / Chest: Atraumatic, Breath sounds NL, Breath sounds = bilat, No respiratory distress Cardiovascular: Heart rate NL, Regular rhythm 3/6 ejection murmur Abdomen: Atraumatic, Soft, Non-tender Upper Extremity / MS: Full range of motion, No swelling small area of erythema to the back of the right shoulder and right elbow Lower Extremity / Pelvis / MS: Full range of motion, No swelling small area of erythema to the right iliac crest, left knee and left foot Skin: Color NL, No rash, Warm, Dry Neurologic: Speech NL, No motor deficits, No sensory deficits Interpretation & Diagnostics Lab Results Interpretation Result Diagram: 09/27/16 0950 09/27/16 0950 Test 09/27/16 09:40 09/27/16 09:50 Urine Color Yellow (YELLOW) Urine Appearance Hazy (CLEAR,HAZY) Urine pH 7.0 (5.0-8.0) Urine Specific [place] 1.020 (1.003-1.035) Urine Protein 100mg/dL (NEG,TRACE) Urine Glucose (UA) Negativemg/dL (NEGATIVE) Urine Ketones Negativemg/dL (NEGATIVE) Urine Occult Blood Moderate (NEGATIVE) Urine Nitrite Negative (NEGATIVE) Urine Bilirubin Negative (NEGATIVE) Urine Urobilinogen Normalmg/dL (NORMAL) Urine Leukocyte Esterase Negative (NEGATIVE) Urine RBC 0-2/hpf (0-2) Urine WBC 0-5/hpf (0-5) Urine Epithelial Cells Occasional/hpf (NONE-MOD) Urine Crystals Amorphous phosphates Urine Bacteria Few/hpf (NONE-FEW) Urine Hyaline Casts Occasional/lpf (NONE) Urine Granular Casts None seen (NONE SEEN) Urine Waxy Casts None seen (NONE SEEN) Urine Red Blood Cell Casts None seen (NONE SEEN) Urine White Blood Cell Casts None seen (NONE SEEN) Urine Mucus None seen (None Seen) Urine Trichomonas None seen (NONE SEEN) Urine Yeast None (NONE SEEN) Urinalysis Comment None Urine Culture Reflexed Not indicated White Blood Count 16.2th/mm3 (3.8-10.1) Red Blood Count 3.85mil/mm3 (3.90-5.20) Hemoglobin 11.3g/dL (12.0-15.6) Hematocrit 33.8% (35.0-46.0) Mean Corpuscular Volume 87.8fL (81-100) Mean Corpuscular Hemoglobin 29.4pg (27.0-35.0) Mean Corpuscular Hemoglobin Concent 33.4% (32.0-37.0) Red Cell Distribution Width 13.2% (12.3-15.4) Platelet Count 256bil/L (150-400) Neutrophils (%) (Auto) 85.7% (40-74) Lymphocytes (%) (Auto) 5.4% (14-46) Monocytes (%) (Auto) 8.5% (4-12) Eosinophils (%) (Auto) 0% (0-5) Basophils (%) (Auto) 0.1% (0-3) Sodium Level 126mEq/L (134-144) Potassium Level 3.1mEq/L (3.5-5.2) Chloride Level 87mEq/L (97-108) Carbon Dioxide Level 22mmol/L (18-29) Blood Urea Nitrogen 16mg/dL (8-27) Creatinine 0.63mg/dL (0.57-1.00) Estimat Glomerular Filtration Rate 127mL/min (>59) Glucose Level 114mg/dL (60-99) Lactic Acid Level 1.3mmol/L (0.4-2.0) Calcium Level 9.6mg/dL (8.5-10.1) Magnesium Level 1.7mg/dL (1.6-2.6) Total Bilirubin 0.8mg/dL (0.0-1.2) Aspartate Amino Transf (AST/SGOT) 50U/L (0-50) Alanine Aminotransferase (ALT/SGPT) 19U/L (0-32) Alkaline Phosphatase 72U/L (25-165) Total Creatine Kinase 1360U/L (21-215) Troponin T 0.010ug/L (0.0-0.011) Total Protein 8.4g/dL (6.4-8.4) Albumin 4.0g/dL (3.4-5.0) ECG Interpretation ECG Interpretation: 1st degree block old inferior and anterior infarct prolonged QT interal no acute ischemia similar to previous EKG Time: 10:08 Interpreted by: ED physician Normal ECG Interpretation: Normal rate (75), Normal sinus rhythm X-Ray Chest Interpretation Chest Xray Interpretation: IMPRESSION: 1. No definite acute traumatic abnormality. Dictated by: Chava Reich M.D. on 09/27/2016 at 9:54 Approved by: Chava Reich M.D. on 09/27/2016 at 10:24 Interpretation / Wet Read by: Interpret - Radiologist Re-Eval/Medical Decision Med Decision/Clinical Course 89 woman found on the floor. Low-sodium, low potassium, elevated CPK consistent with developing rhabdomyolysis (skin lesions also consistent with this estimated 12-24 hours on the floor). No evidence of acute renal failure. Leukocytosis with no evidence of actual infection or source at this time. Significant dehydration. Will be admitted to the hospitalist service. No evidence of significant fractures or other trauma from her fall and it is actually unclear how she truly ended up on the floor. Re-Evaluation/Progress #1: Time of Eval: 11:36 Re-Evaluation/Progress Note: Discussed all results with patient's son. Re-Evaluation/Progress #2: Time of Eval: 12:48 Patient Status: Pain resolved Re-Evaluation/Progress Note: Further discussed results with the paitent and plan for admit. Patient understands and agrees to plan. All questions were addressed. Consultation : Referral / Consult Name: Bong Stewart MD Consulted With: Hospitalist Call Returned at: 13:16 Pig Sticker: Agrees with eval, Agrees with plan, Accepts admit Counseled Regarding: Diagnosis, Lab results, Need for admission Discharge & Departure Impression: Primary Impression: Fall Encounter type: initial encounter Qualified Code: W19.XXXA - Unspecified fall, initial encounter Additional Impressions: Hypokalemia Hyponatremia Weakness Rhabdomyolysis Rhabdomyolysis type: traumatic Encounter type: initial encounter Qualified Code: T79.6XXA - Traumatic ischemia of muscle, initial encounter Disposition: ADMITTED TO HOSPITAL Discharge Condition All VS Reviewed: Yes Condition: Stable Referrals: La Cardona (PCP) Lianibprudencio Attestation Portions of this note were transcribed by Marli Valenzuela. I, Dr. Solnao personally performed the history, physical exam and medical decision-making; I reviewed and confirmed the accuracy of the information in the transcribed note. Signed by: [place] August, 09/27/16 and 1300 copies to: La Cardona Shawna L MD Sep 27, 2016 09:10 Keri Valenzuela Sep 27, 2016 09:24
[2016-09-27 10:03] LABS: BASOPHILS % (AUTO) 0.1 % (0-3); EOSINOPHILS % (AUTO) 0 % (0-5); MONOCYTES % (AUTO) 8.5 % (4-12); Mean Corpuscular Hemoglobin 29.4 pg (27.0-35.0); Mean Corpuscular Volume 87.8 fL (81-100); NEUTROPHILS % (AUTO) 85.7 % (40-74); Platelet Count 256 bil/L (150-400)
[2016-09-27] MEDS ORDERED: 0.9% Sodium Chloride 1,000 ML IV ONE (10:15)
[2016-09-27 10:26] LABS: TROPONIN T 0.01 ug/L (0.0-0.011)
--- NOTE | 2016-09-27 10:26 | DRSVH ---
PROCEDURE: X-RAY CHEST ONE VIEW, PORTABLE ([id number]) INDICATIONS: FALL TECHNIQUE: One view of the chest was acquired. COMPARISON: [facility], CR, XR CHEST 2VW, 07/15/2016, 21:57. FINDINGS: Surgical changes and devices: None. Lungs and pleura: No pleural effusions or pneumothorax. Lungs are grossly clear. The right lung bas e is partially obscured by patient's hand. Mediastinum: Mediastinal contours appear normal. Heart size is normal. Bones and chest wall: No acute displaced fractures. There are old right rib and left humeral neck f ractures are demonstrated. Overlying soft tissues appear unremarkable. IMPRESSION: 1. No definite acute traumatic abnormality. Dictated by: Chava Reich M.D. on 09/27/2016 at 9:54 Approved by: Chava Reich M.D. on 09/27/2016 at 10:24
[2016-09-27 10:37] LABS: Magnesium 1.7 mg/dL (1.6-2.6)
[2016-09-27 11:02] LABS: APPEARANCE,URINE HAZY (CLEAR,HAZY); COLOR,URINE YELLOW (YELLOW)
[2016-09-27 11:03] LABS: OCCULT BLOOD,URINE MODERATE (NEGATIVE); UROBILINOGEN,URINE NORMAL (NORMAL)
[2016-09-27 12:06] VITALS: BP 160/52; PULSE 75; RESP 19; O2SAT 98
[2016-09-27] MEDS ORDERED: [UNRECOGNIZED DRUG - CODE] MC (12:25)
[2016-09-27] MEDS ORDERED: Ondansetron 2 mg/mL 2 mL Inj IVPUSH PRN (13:35)
[2016-09-27] MEDS ORDERED: Polyethylene Glycol (PEG) 17 Gm Powder PO PRN (13:35)
[2016-09-27] MEDS ORDERED: Alum-Mag Hydrox-Simeth 30 mL Suspension PO PRN (13:35)
[2016-09-27] MEDS ORDERED: LEVO112T4 PO (13:41)
[2016-09-27] MEDS ORDERED: TAMS0.4C98 PO (13:41)
[2016-09-27] MEDS ORDERED: MULT-666 PO (13:41)
[2016-09-27] MEDS ORDERED: CALC600T12 PO (13:41)
[2016-09-27] MEDS ORDERED: GLUC-91 PO (13:41)
[2016-09-27] MEDS ORDERED: ASCO-294 PO (13:41)
[2016-09-27] MEDS ORDERED: BISA10SU61 RC (13:44)
[2016-09-27] MEDS ORDERED: ACET325T51 PO (13:44)
[2016-09-27] MEDS ORDERED: MAGN400O4 PO (13:44)
[2016-09-27] MEDS ORDERED: NA P133E23 RC (13:44)
--- NOTE | 2016-09-27 14:04 | NUR ---
Admission Patient arrived to floor alone at approx 1400. Patient oriented x 3. Ambulated to bathroom with 1PA. Denies pain and SOB. Oriented to room and hospital policies. Addendum: 09/27/16 at 1410 by THAD KEVIN RN Patient is forgetful yet easily redirected.
[2016-09-27 14:15] VITALS: BP 129/93; PULSE 104; RESP 16; O2SAT 97
--- NOTE | 2016-09-27 14:56 | PCM.HPMED ---
Subjective Date of Service Sep 27, 2016 Primary Provider: Admitting Physician: Ashwin Starr MD Primary Care Physician: La Cardona Attending Physician: Ashwin Starr MD Chief Complaint: Ground-level fall/syncope History of Present Illness: 89-year-old female with a history of dementia, hypertension, rheumatoid arthritis who resides at [facility] presented to the emergency department this morning via EMS due to an unwitnessed fall. Staff found the patient laying near her bed, with some reports stating that she was under her bed. Patient does not number falling or how she got here and is a very poor historian. She has complaints of right arm pain related to her IV, but otherwise denies any focal pain. Patient reported the patient hitting her head. She denies ongoing abdominal pain, chest pain, shortness of breath, headache, dizziness, lightheadedness, racing heartbeat. No other information is available. Patient's last admission was July 15 of this year due to metabolic encephalopathy due to UTI. Blood work from the emergency department showed an elevated CK around 1300, actually abnormalities that seem to be chronic. Urinalysis was negative for signs of infection. CBC was suspicious for infection with a white count around 16,000. Chest x-ray was negative Review of Systems: Complete review of systems performed; pertinent positives and negatives per history of present illness, all other systems reviewed and are negative Allergies Coded Allergies: iodine (Verified Allergy, Mild, RASH AND IRRITATION, 09/27/16) FRANCISCO J Inhibitors (Verified Allergy, Unknown, 09/27/16) atenolol (Verified Allergy, Unknown, 09/27/16) atorvastatin (Verified Allergy, Unknown, 09/27/16) hydroxychloroquine (Verified Allergy, Unknown, 09/27/16) Home Medications Ascorbate Calcium (Vitamin C) 500 Mg Tablet 1,000 MG PO DAILY Calcium Carbonate (Calcium) 600 Mg Tablet 600 MG PO DAILY Cholecalciferol (Vitamin D3) (Vitamin D3) 2,000 Unit Tablet 2,000 UNIT PO QAM Citalopram (Citalopram) 10 Mg Tablet 10 MG PO QAM Cyanocobalamin (Vitamin B12) 500 Mcg Tablet 500 MCG PO QAM Denosumab (Prolia) 60 Mg/1 Ml Syringe 60 MG SQ [id number] Diltiazem ER (Diltiazem ER) 120 Mg Cap.er.24h 120 MG PO QAM Gluc/Eyal-MSM#1/Vit C/James/Bor (Jcaxdte-Poyzx-NFB Complex Cplt) 1 Each Tablet 1 EACH PO DAILY Levothyroxine (Levothyroxine) 112 Mcg Tablet 112 MCG PO DAILY Losartan Potassium (Losartan Potassium) 100 Mg Tablet 100 MG PO QAM Multivitamin (Once Daily) 1 Each Tablet 1 EACH PO DAILY [place]-3/Dha/Epa/Fish Oil (Fish Oil 1,000 mg Softgel) 1 Each Capsule 1 EACH PO QAM Tamsulosin (Flomax) 0.4 Mg Capsule 0.4 MG PO HS Acetaminophen (Acetaminophen) 325 Mg Tablet 325-650 MG PO q4 hours PRN PRN For Pain Bisacodyl (Dulcolax Rectal) 10 Mg Supp.rect 10 MG RC DAILY PRN PRN no bm x 12 shifts Magnesium Hydroxide (Milk of Magnesia) 400 Mg/5 Ml Oral.susp 30 ML PO prn PRN PRN no BM in 9 shifts. Na Phos,M-B/Na Phos,Di-Ba (Fleet Enema) 133 Ml Enema 133 ML RC prn PRN PRN no BM x 15 shifts. Pending confirmation of med list PMH 1. Hypertension. 2. Hypothyroidism. 3. Systemic lupus erythematosus. 4. Rheumatoid arthritis. 5. Vitamin B 12 deficiency. 6. Osteoporosis. 7. History of atrial fibrillation/flutter in 2007. 8. History of iron-deficiency anemia. 9. Gastroesophageal reflux disease. 10. Depression. 11. History of colon diverticulosis found on colonoscopy 3 years ago. 12. Hyperlipidemia. 13. Osteoarthritis. Surgical History s/p kyphoplasty 2011 Cataract surgery Cholecystectomy Tubal ligation Family History Unavailable due to patient's dementia Social History Hx Alcohol Use: No Hx Substance Use: No Hx Tobacco Use: No Smoking Status: Never Smoker Living Arrangement: Assisted Living Exam Vital Signs Vital Sign - Last Date Time Temp Pulse Resp B/P Pulse Ox O2 Delivery O2 Flow Rate FiO2 09/27/16 14:15 36.6 104 16 129/93 97 Room Air Exam General: Pleasant appearing female, no acute distress HEENT: PERRLA, nonicteric, membranes dry Lymph: No lymphadenopathy Cardio: Regular rate and rhythm with 3/6 holosystolic murmur Respiratory: CTA bilaterally, no wheezes, no crackles Abdomen: Soft, positive bowel sounds, nontender, nondistended Extremities: No edema, red area of erythema over the left medial aspect of the knee with early skin breakdown; right elbow erythema and edema Psych: Demented Neuro: CN II through XII grossly intact, able to follow commands negative heel to navas, Romberg and, and finger to nose Skin: No rash Lab and Diagnostics Result Diagram: 09/27/16 0950 09/27/16 0950 X-Rays, CTs and MRIs Chest x-ray 1. No definite acute traumatic abnormality. Dictated by: Chava Reich M.D. on 09/27/2016 at 9:54 12-lead ECG Normal sinus rhythm with no concerning ST changes but no supple prolonged QT. Assessment & Plan 89-year-old female who was found down after unwitnessed fall at [facility]. Probable syncope and ground-level fall in the setting of leukocytosis; present admission; ongoing -Patient was found down, unsure if she had a syncopal episode or put herself in that position -Imaging is negative for fracture, head was nontraumatic on exam -CK around 1300, without kidney damage or complaints of pain; occult blood was positive on UA, likely myoglobin -Maintain on telemetry faint history of atrial fibrillation; -100 mL/hr normal saline; received 1 unit in the ED -Blood cultures pending -We will check pro-calcitonin -Recheck CBC in a.m. -Speech eval -CT scan without contrast of the brain Hyponatremia and hypokalemia with mild anion gap acidosis, present on admission , ongoing -Sodium 126 and potassium of 3.1 -AG of 17 -Normal saline as above -Replace potassium 20meq oral TID with meals today and tomorrow -Lactic for 1800 tonight Hypertension; present admission; stable -Patient oscillating between 120 and 160 -Continue home BP meds Disposition: Patient has been admitted to the general medical floor under observation Patient is not currently able to make decisions about her CODE STATUS. She remains full code per her POLST form Pain Evaluation: Adequate Pain Control VTE Mechanical Devices: Intermittant Pneumatic CD Resuscitation Status: CPR: Attempt Resuscitation John Maier DO Sep 27, 2016 14:56
--- NOTE | 2016-09-27 16:15 | NUR ---
Evaluation completed. Please go to "Notes" then click on "Assessments and Notes" (bottom left corner of screen). Then select appropriate discipline tab on top of screen.
--- NOTE | 2016-09-27 16:47 | DRSVH ---
PROCEDURE: CT BRAIN WITHOUT CONTRAST ([id number]) INDICATIONS: fall and confusion TECHNIQUE: Noncontrast 4.5 mm thick angled axial sections acquired from the foramen magnum to the vertex, with c oronal reformats. COMPARISON: [facility], CT, CT BRAIN WO CON, 07/15/2016, 14:46. FINDINGS: Image quality: Excellent. CSF spaces: Basal cisterns are patent. No extra-axial fluid collections. The ventricles are symmet pepito in size and shape. Brain: No intracranial bleeds or masses. There is cerebral volume loss for age, with resultant vent ricular and sulcal prominence. There are periventricular and deep white matter chronic small vessel ischemic changes. There is intracranial internal carotid artery atherosclerosis. Skull and face: Calvarium and visualized facial bones appear intact, without suspicious lesions. Sinuses: Visualized sinuses and mastoids are clear. IMPRESSION: No hemorrhage found, no trauma identified. Moderate microvascular atherosclerotic change in the deep white matter of each hemisphere, as was previously the case. Dictated by: Guido Camargo M.D. on 09/27/2016 at 16:44 Approved by: Guido Camargo M.D. on 09/27/2016 at 16:44
[2016-09-27] MEDS: 0.9% Sodium Chloride 1,000 ML IV SCH (16:48)
[2016-09-27 20:02] VITALS: BP 152/77; PULSE 77; RESP 16; O2SAT 98
[2016-09-27 21:54] VITALS: PULSE 63
[2016-09-28] VITALS (7 sets, daily range): BP systolic 159–187; BP diastolic 63–91; PULSE 53–78; RESP 16–20; O2SAT 95–99
[2016-09-28] MEDS: 0.9% Sodium Chloride 1,000 ML IV SCH ×2 (02:11→04:51)
--- NOTE | 2016-09-28 04:54 | NUR ---
Urinary Patient had three unsuccessful attempts to void, receiving IV fluids at 100 ml/hr. Bladder scan revealed 764 ml urine retention. MD marquez, new order to do a straight catheter one time. Patient had immediate 800 ml return of urine, reported increased comfort. Addendum: 09/28/16 at 0633 by GIULIANO TAYLOR RN Patient reported around 0600 that she needed to void, unable. Bladder scan revealed 176 ml. Patient agreeable to wait a little longer and try again.
[2016-09-28] MEDS: Diltiazem CD 120 mg ER24 Capsule PO SCH (08:16)
[2016-09-28] MEDS: Potassium Chloride 20 mEq SR Tablet PO SCH (08:16)
[2016-09-28 08:25] LABS: BASOPHILS % (AUTO) 0.4 % (0-3); EOSINOPHILS % (AUTO) 2.3 % (0-5); MONOCYTES % (AUTO) 13.8 % (4-12); Mean Corpuscular Hemoglobin 29.6 pg (27.0-35.0); Mean Corpuscular Volume 89.7 fL (81-100); NEUTROPHILS % (AUTO) 61.2 % (40-74); Platelet Count 240 bil/L (150-400)
[2016-09-28 08:36] LABS: Magnesium 1.7 mg/dL (1.6-2.6)
[2016-09-28] MEDS ORDERED: KCl 40 mEq/D5W 500 mL 40 MEQ in IV Premix 1 EACH IV ONE (10:15)
--- NOTE | 2016-09-28 11:53 | NUR ---
Case Management: MOORE and Medicare Part D pamphlet delivered and explained to pt. and daughter at bedside. Signed original placed in chart. Copy left at bedside. Marilu Elder RN
--- NOTE | 2016-09-28 14:24 | NUR ---
Social Work: Initial Assessment/Multidisciplinary Rounds D: EMR reviewed. Please see initial assessment linked for further information. Pt is a 89 y/o female admitted [facility] for lower sodium and potassium/unwitnessed fall per H &P. Pt has a readmit risk score of 6. SW attempted to meet with pt at bedside to conduct initial assessment. Pt was not alert and oriented. WILFREDO placed T/C to pt's son/DPOA Cory Melendez [phone] to complete assessment. SW explained role and confirmed SW will write phone number on white board in room. Pt's insurance is Medicare and [employer]. PCP is YANA Hurtado. "Your Discharge Planning Checklist" left in pt's room. SW encouraged pt's son to contact SW for any discharge planning questions/concerns. Per rounds, pt to be evaluated by PT/OT today. Pt likely to discharge tomorrow. Pt resides at [facility]. Per pt's son and EMR, pt fell at [facility] and fall was unwitnessed. SW to update Noemi at [facility] ([phone]) on day of discharge to determine if pt will be accepted to return. A: Pt who resides at [facility] at baseline. Pt's capacity for self-care assessed - pt needs assistance with all ADLs and currently receives assistance at [facility]. P: Pt resides at [facility]. SW to update Noemi at [facility] ([phone]) on day of discharge to determine if pt will be accepted to return. SW to follow for PT/OT recommendations. MARY Castelan Addendum: 09/28/16 at 1430 by PERLITA PETERSON Amended: Links added.
--- NOTE | 2016-09-28 15:30 | NUR ---
Evaluation completed. Please go to "Notes" then click on "Assessments and Notes" (bottom left corner of screen). Then select appropriate discipline tab on top of screen.
[2016-09-28] MEDS ORDERED: Magnesium Sulf 2 Gm/50mL Water 2 GM in IV Premix 1 EACH IV ONE (16:40)
--- NOTE | 2016-09-28 17:00 | PCM.PNMED ---
Subjective Date of Service Sep 28, 2016 Subjective pt is pleasantly confused, doesn't remember what happened yesterday, didn't remember her fall, denied STARR, dizziness, as per family, pt was on fluid restriction 800cc/hr pt denied diarrhea, noted Na leve increased from 126 to 131 potassium remained low 3.1 to 3.0 pt c/o dryness on her mouth, requested more water intake As per family, pt has been eating well, ambulating with Walker okay. no particular concern except noted "faulty valve" per PCP, recommended cardiology follow up, which was scheduled for tomorrow with pt retained urine overnight, required in/out cath once, but able to void afterwards with minimal retention. Exam Vital Signs Vital Sign - Last Date Time Temp Pulse Resp B/P Pulse Ox O2 Delivery O2 Flow Rate FiO2 09/28/16 12:59 36.3 70 18 159/67 95 Room Air Intake and Output 09/27/16 09/27/16 09/28/16 Cumulative From/Thru 15:00 23:00 07:00 09/27/16 08:42 - 09/28/16 06:14 Intake Total 418 ml 954 ml 1372 ml Output Total 800 ml 800 ml Balance 418 ml 154 ml 572 ml Intake Oral 418 ml 0 ml 418 ml IV Total 954 ml 954 ml Output Urine Total 800 ml 800 ml # Voids 4 4 # Bowel Movements 1 0 1 Exam Pleasant , Elderly female comfortably laying down on the bed' AAOx1, no JVD, MMM, no LAD RRR, nl s1, s2 no mrg CTAB, no w,c S,ND,NT,normoactive BS+ warm, no edema, pulses 2/2 IVs and Medications Medications Reviewed: Medications were reviewed in detail Lab and Diagnostics Result Diagram: 09/28/1670409/28/16 07 X-Rays, CTs and MRIs Chest x-ray 1. No definite acute traumatic abnormality. Dictated by: Chava Reich M.D. on 09/27/2016 at 9:54 12-lead ECG Normal sinus rhythm with no concerning ST changes but no supple prolonged QT. Assessment & Plan 89-year-old female who was found down after unwitnessed fall [facility]. acute, active Unwitnessed ground-level fall, hx of recent multiple falls, POA, likely multifactorial: chronic hyponatremia with unsteady gait, possible urinary retention with micturition syncope, severe which was noted recently in 's note. CTH was unremarkable for acute pathology. -pt remained HD stable, no episode on telemetry. -consider consult cardiology for in house consultation for severe (no TTE reported was found in [facility], however, according to recent PCP's note worsening was noted on recent TTE, pt has appointment tomorrow 09/29 with -correct electrolytes and see this helps her gait -continue telemetry Hyponatremia due to SIADH, present on admission, Sodium 126 on admission, AG of 17. -Sodium level improved with IVF, pt appeared euvolemic today, stop IVF, but start fluid restriction 800cc/hr for SIADH -Normal saline as above -Replace potassium 20meq oral TID with meals today and tomorrow -Lactic for 1800 tonight hypoMg/hypokalemia with mild anion gap acidosis, POA, potassium of 3.1 on admission, unclear etiology, possibly due subclinical hypothyroid statue, no signs of GI fluid loss. -K,Mg remained low today, replete as needed keep K>4 -consider follow up urine lytes to excluded renal wasting urinary retention, POA, resume flomax , follow up with chronic, stable #Hypertension; present admission; stable, Continue home BP meds, [id number], #prot caloric malnutirion, BMI21, continue diet #HTN-continue home diltiazem and losartan. #p afib-follow telemetry patient is not anticoagulated, not good candidate for AC given falls #hypothyroidism, TSH 9.19 slightly better 10.31 on 07/16 despite increase of LT4 to 112mcg, will continue it for now Disposition: likely 1-2more days, She remains full code per her POLST form VTE Mechanical Devices: Venous Foot Pump Resuscitation Status: CPR: Attempt Resuscitation Time spent 35min Ashwin Starr MD Sep 28, 2016 16:42
--- NOTE | 2016-09-28 23:52 | NUR ---
Urinary retention Did bladder scan of pt, showed 805 mls retention. Pt had 2 successful voids of 300 and 400 mls. on bedside commode and bedpan. Will continue to monitor input/output.
[2016-09-29] VITALS (9 sets, daily range): BP systolic 148–170; BP diastolic 68–82; PULSE 60–162; RESP 17–18; O2SAT 94–99
--- NOTE | 2016-09-29 06:25 | NUR ---
retention Pt up several times this shift to urinate, mostly continent. Pt on fluid restrictions, output of 1150cc pale yellow urine.
[2016-09-29 07:57] LABS: Magnesium 1.9 mg/dL (1.6-2.6); Phosphorus 2.9 mg/dL (2.5-4.9)
[2016-09-29] MEDS: Diltiazem CD 120 mg ER24 Capsule PO SCH (08:02)
[2016-09-29] MEDS: Potassium Chloride 20 mEq SR Tablet PO SCH (08:02)
[2016-09-29 08:07] LABS: Mean Corpuscular Hemoglobin 29.9 pg (27.0-35.0); Mean Corpuscular Volume 89.3 fL (81-100); Platelet Count 237 bil/L (150-400)
[2016-09-29 08:08] LABS: BASOPHILS % (AUTO) 0.2 % (0-3); EOSINOPHILS % (AUTO) 2.9 % (0-5); MONOCYTES % (AUTO) 11.8 % (4-12); NEUTROPHILS % (AUTO) 68.1 % (40-74)
--- NOTE | 2016-09-29 11:24 | NUR ---
Social Work-multidisciplinary rounds: Per MD, pt will likely be in the hospital for 1-2 more days. PT has seen pt and they are recommending SNF. SW awaiting MD order for SNF placement. SW will continue to follow. MARY Shook
[2016-09-29 12:52] LABS: TROPONIN T 0.01 ug/L (0.0-0.011)
--- NOTE | 2016-09-29 14:30 | NUR ---
LATRICE signed with pt's family. MARY Shook
--- NOTE | 2016-09-29 14:51 | NUR ---
Social Work-readiness for discharge: Data:EMR reviewed. Pt i son day 2 of hospitalization for lower sodium per H&P. Pt is not medically stable anticipate 1-2 more days. PT has seen pt and is recommending SNF placement. order received. SW followed up with pt and family, son Cory [phone] and daughter Funmilayo [phone] at bedside to discuss discharge planning, SW role explained. SW explained recommendation of SNF. Family confirmed that pt just discharged from SNF about 2 weeks ago. Family in agreement and would like pt to go to SNF-[facility] at discharge, SNF choice list provided. SW spoke with Katiana admissions at [facility] regarding pt, access given and PASRR and facesheet faxed. Katiana states pt discharged from SNF on 09/14, so pt is within 30 day window to use her Medicare and would not need another 3 day inpt stay. [facility] confirms they can accept pt with Dr. Rmoan to follow. Paperwork and PASRR in the chart. SW will continue to follow. Assessment:Pt to benefit from SNF. Plan:Pt to discharge to [facility] SNF when medically stable. Paperwork and PASRR in the chart. SW will continue to follow. MARY Shook
--- NOTE | 2016-09-29 14:56 | NUR ---
[facility] can accept pt with Dr. Roman to follow. MARY Shook
--- NOTE | 2016-09-29 14:56 | NUR ---
SNF choice list provided. MARY Shook
--- NOTE | 2016-09-29 16:04 | DRSVH ---
[facility] [address] [place] [place] [address] Echocardiogram Report Name: TARIQ DIXON LStudy Date: 09/29/2016 Height: 60 in Hospital Exam Location: [facility] Weight: 112 lb Gender: Female BSA: 1.5 m2 : 1925 Age: 89 yrs BP: 148/74 mm Hg Reason For Study: Syncope Ordering Physician: Jackie Jeronimo Performed By: Blanca Aguirre Referring Physician: La Cardona Interpretation Summary Blue team Left ventricular wall thickness is mildly increased. The ejection fraction is estimated to be 65-70%. There is moderate mitral annular calcification. There is mild mitral regurgitation. The aortic valve is moderately calcified. The calculated aortic valve area is 1.2 cm2. The peak aortic velocity is 3.3 m/sec. The peak aortic velocity on the previous exam was 2.6 m/sec. There is moderate aortic stenosis. The right ventricular systolic pressure is estimated at 34 mmHg assuming a right atrial pressure of 15 mm Hg. Procedure: A two-dimensional transthoracic echocardiogram with color flow and Doppler was performed. The study quality was technically adequate. Comparison is made with the echocardiogram of 05/04/2012. The patient was in normal sinus rhythm during the exam. Left Ventricle: Left ventricular wall thickness is mildly increased. The ejection fraction is estimated to be 65-70%. There are no focal wall motion abnormalities. Right Ventricle: The right ventricle is normal in size and function. Atria: There is mild biatrial enlargement. There is no Doppler evidence for an interatrial shunt. Mitral Valve: There is moderate mitral annular calcification. The mitral valve mean gradient is 2.9 mmHg. No significant mitral valve stenosis. There is mild mitral regurgitation. Aortic Valve: The aortic valve is moderately calcified. Leaflet mobility is moderately reduced. The calculated aortic valve area is 1.2 cm2. The peak aortic velocity is 3.3 m/sec. The aortic valve mean gradient is 24 mmHg. The peak aortic velocity on the previous exam was 2.6 m/sec. The aortic valve area indexed to the BSA is 0.85 . There is moderate aortic stenosis. No aortic regurgitation is present. Tricuspid Valve: The tricuspid valve is normal in structure and function. The right ventricular systolic pressure is estimated at 34 mmHg assuming a right atrial pressure of 15 mm Hg. There is mild to moderate tricuspid regurgitation. Pulmonic Valve: The pulmonic valve is not well seen, but is grossly normal. Great Vessels: The aortic root is normal size. The ascending aorta is normal in size. The aortic arch is normal in size. The IVC is dilated (diameter is greater than 2.1 cm) and it collapses less than 50% with a sniff. This suggests a high right atrial pressure of 15 mm Hg. Pericardium/ Pleura There is no pericardial effusion. There is no pleural effusion. MMode/2D Measurements & Calculations LVIDd: 3.8 cm RA long axis LVOT diam: 1.9 cm LVIDs: 1.9 cm LA A2 area: 19.8 cm AoV Opening FS: 50.6 % LA A4 area: 20.6 cm RA area EPSS: 0.79 cm LA length (vol) Ao root diam IVSd: 1.3 cm : 17.3 cm LVPWd: 1.1 cm LA vol: 60.3 ml RA vol Aortic Jxn: 2.1 cm LA vol index : 50.6 ml asc Aorta Diam RA : 34.7 mm2 Ao Arch Diam (Prox IVC diam: 2.2 cm Trans): 2.5 cm LV orozco. diameter/BSA LV sys. diameter/BSA RVD1 (basal) RVD2 (mid): 2.5 cm (cm/m^2): 2.6 (cm/m^2): 1.3 TAPSE: 1.8 cm Doppler Measurements & Calculations Ao V2 max MV E max phil MV E/A: 0.73 TR max phil : 327.4 cm/sec : 108.6 cm/sec Med Peak E' Phil : 218.6 cm/sec Ao max PG MV A max phil TR max PG : 42.9 mmHg : 149.1 cm/sec E/E' med: 25.5 : 19.1 mmHg Ao mean PG MV P1/2t: 115.8 msec Lat Peak E' Phil PA V2 max : 24.1 mmHg : 65.6 cm/sec LVOT Max Phil MVA(VTI): 2.2 cm2 E/E' lat: 20.9 PA mean PG : 126.9 cm/sec E/e' average : 0.85 mmHg PA Accel Time SHERRIE(I,D): 1.2 cm : 0.08 sec sev ratio MV V2 mean MV P1/2t max phil Ao V2 mean LV V1 max PG : 78.5 cm/sec : 230.7 cm/sec MV mean PG MVA(P1/2t): 1.9 cm2 Ao V2 VTI: 71.6 cmLV V1 VTI SHERRIE(V,D): 1.1 cm2 : 31.3 cm MV V2 VTI: 40.0 cm MV dec time : 0.39 sec PA V2 mean SHERRIE indexed to BSA : 43.4 cm/sec (cm^2/m^2): 0.85 Electronically signed by: Kei Robles on Reading Physician:09/29/2016 04:03 PM
--- NOTE | 2016-09-29 18:23 | NUR ---
Shift Report Patient absent of falls, calling appropriately for assistance out of bed. Placement is being coordinated.
--- NOTE | 2016-09-29 19:53 | PCM.PNMED ---
Subjective Date of Service Sep 29, 2016 Subjective Patient is resting in bed comfortably with family at bedside. Exam Vital Signs Vital Sign - Last Date Time Temp Pulse Resp B/P Pulse Ox O2 Delivery O2 Flow Rate FiO2 09/29/16 17:06 36.8 67 18 164/76 98 Room Air Intake and Output 09/28/16 09/28/16 09/29/16 Cumulative From/Thru 15:00 23:00 07:00 09/27/16 08:42 - 09/29/16 05:35 Intake Total 2150 ml 200 ml 3722 ml Output Total 150 ml 700 ml 1650 ml Balance 2000 ml -500 ml 2072 ml Intake Oral 718 ml 200 ml 1336 ml IV Total 1432 ml 2386 ml Output Urine Total 150 ml 700 ml 1650 ml # Voids 3 7 # Bowel Movements 0 1 Exam Constitutional: Elderly female in no acute distress Head: Normocephalic atraumatic Chest: Clear to auscultation Cor: Regular rate and rhythm S1-S2 with a 2/6 systolic ejection murmur Abdomen: Soft nontender bowel sounds present Extremities: No pedal edema Neuro: Alert and oriented 3, motor strength is intact bilaterally Lab and Diagnostics Laboratory Tests 72 Hours Test 09/27/16 09:40 09/27/16 09:50 09/27/16 17:58 09/28/16 07:05 Urine Color Yellow (YELLOW) Urine Appearance Hazy (CLEAR,HAZY) Urine pH 7.0 (5.0-8.0) Urine Specific Hunter 1.020 (1.003-1.035) Urine Protein 100mg/dL (NEG,TRACE) Urine Glucose (UA) Negativemg/dL (NEGATIVE) Urine Ketones Negativemg/dL (NEGATIVE) Urine Occult Blood Moderate (NEGATIVE) Urine Nitrite Negative (NEGATIVE) Urine Bilirubin Negative (NEGATIVE) Urine Urobilinogen Normalmg/dL (NORMAL) Urine Leukocyte Esterase Negative (NEGATIVE) Urine RBC 0-2/hpf (0-2) Urine WBC 0-5/hpf (0-5) Urine Epithelial Cells Occasional/hpf (NONE-MOD) Urine Crystals Amorphous phosphates Urine Bacteria Few/hpf (NONE-FEW) Urine Hyaline Casts Occasional/lpf (NONE) Urine Granular Casts None seen (NONE SEEN) Urine Waxy Casts None seen (NONE SEEN) Urine Red Blood Cell Casts None seen (NONE SEEN) Urine White Blood Cell Casts None seen (NONE SEEN) Urine Mucus None seen (None Seen) Urine Trichomonas None seen (NONE SEEN) Urine Yeast None (NONE SEEN) Urinalysis Comment None Urine Culture Reflexed Not indicated White Blood Count 16.2th/mm3 (3.8-10.1) 6.9th/mm3 (3.8-10.1) Red Blood Count 3.85mil/mm3 (3.90-5.20) 3.41mil/mm3 (3.90-5.20) Hemoglobin 11.3g/dL (12.0-15.6) 10.1g/dL (12.0-15.6) Hematocrit 33.8% (35.0-46.0) 30.6% (35.0-46.0) Mean Corpuscular Volume 87.8fL (81-100) 89.7fL (81-100) Mean Corpuscular Hemoglobin 29.4pg (27.0-35.0) 29.6pg (27.0-35.0) Mean Corpuscular Hemoglobin Concent 33.4% (32.0-37.0) 33.0% (32.0-37.0) Red Cell Distribution Width 13.2% (12.3-15.4) 13.4% (12.3-15.4) Platelet Count 256bil/L (150-400) 240bil/L (150-400) Neutrophils (%) (Auto) 85.7% (40-74) 61.2% (40-74) Lymphocytes (%) (Auto) 5.4% (14-46) 22.0% (14-46) Monocytes (%) (Auto) 8.5% (4-12) 13.8% (4-12) Eosinophils (%) (Auto) 0% (0-5) 2.3% (0-5) Basophils (%) (Auto) 0.1% (0-3) 0.4% (0-3) Sodium Level 126mEq/L (134-144) 131mEq/L (134-144) Potassium Level 3.1mEq/L (3.5-5.2) 3.0mEq/L (3.5-5.2) Chloride Level 87mEq/L (97-108) 96mEq/L (97-108) Carbon Dioxide Level 22mmol/L (18-29) 23mmol/L (18-29) Blood Urea Nitrogen 16mg/dL (8-27) 16mg/dL (8-27) Creatinine 0.63mg/dL (0.57-1.00) 0.59mg/dL (0.57-1.00) Estimat Glomerular Filtration Rate 127mL/min (>59) 137mL/min (>59) Glucose Level 114mg/dL (60-99) 80mg/dL (60-99) Lactic Acid Level 1.3mmol/L (0.4-2.0) 0.9mmol/L (0.4-2.0) Calcium Level 9.6mg/dL (8.5-10.1) 8.8mg/dL (8.5-10.1) Magnesium Level 1.7mg/dL (1.6-2.6) 1.7mg/dL (1.6-2.6) Total Bilirubin 0.8mg/dL (0.0-1.2) 0.8mg/dL (0.0-1.2) Aspartate Amino Transf (AST/SGOT) 50U/L (0-50) 63U/L (0-50) Alanine Aminotransferase (ALT/SGPT) 19U/L (0-32) 20U/L (0-32) Alkaline Phosphatase 72U/L (25-165) 59U/L (25-165) Total Creatine Kinase 1360U/L (21-215) 1040U/L (21-215) Troponin T 0.010ug/L (0.0-0.011) Total Protein 8.4g/dL (6.4-8.4) 6.7g/dL (6.4-8.4) Albumin 4.0g/dL (3.4-5.0) 3.3g/dL (3.4-5.0) Procalcitonin 0.04ng/mL (0.00-0.08) Phosphorus Level 3.0mg/dL (2.5-4.9) Thyroid Stimulating Hormone (TSH) 9.190uIU/mL (0.450-4.500) Free Thyroxine 1.18ng/dL (0.82-1.77) Test 09/29/16 06:43 White Blood Count 8.1th/mm3 (3.8-10.1) Red Blood Count 3.54mil/mm3 (3.90-5.20) Hemoglobin 10.6g/dL (12.0-15.6) Hematocrit 31.6% (35.0-46.0) Mean Corpuscular Volume 89.3fL (81-100) Mean Corpuscular Hemoglobin 29.9pg (27.0-35.0) Mean Corpuscular Hemoglobin Concent 33.5% (32.0-37.0) Red Cell Distribution Width 13.3% (12.3-15.4) Platelet Count 237bil/L (150-400) Neutrophils (%) (Auto) 68.1% (40-74) Lymphocytes (%) (Auto) 16.6% (14-46) Monocytes (%) (Auto) 11.8% (4-12) Eosinophils (%) (Auto) 2.9% (0-5) Basophils (%) (Auto) 0.2% (0-3) Sodium Level 132mEq/L (134-144) Potassium Level 3.6mEq/L (3.5-5.2) Chloride Level 96mEq/L (97-108) Carbon Dioxide Level 22mmol/L (18-29) Blood Urea Nitrogen 13mg/dL (8-27) Creatinine 0.62mg/dL (0.57-1.00) Estimat Glomerular Filtration Rate 130mL/min (>59) Glucose Level 94mg/dL (60-99) Calcium Level 8.7mg/dL (8.5-10.1) Phosphorus Level 2.9mg/dL (2.5-4.9) Magnesium Level 1.9mg/dL (1.6-2.6) Total Bilirubin 0.7mg/dL (0.0-1.2) Aspartate Amino Transf (AST/SGOT) 56U/L (0-50) Alanine Aminotransferase (ALT/SGPT) 20U/L (0-32) Alkaline Phosphatase 60U/L (25-165) Total Creatine Kinase 633U/L (21-215) Troponin T 0.010ug/L (0.0-0.011) Total Protein 6.9g/dL (6.4-8.4) Albumin 3.4g/dL (3.4-5.0) Procalcitonin 0.05ng/mL (0.00-0.08) Result Diagram: 09/29/16 0643 09/29/16 0643 X-Rays, CTs and MRIs Chest x-ray 1. No definite acute traumatic abnormality. Dictated by: Chava Reich M.D. on 09/27/2016 at 9:54 12-lead ECG Normal sinus rhythm with no concerning ST changes but no supple prolonged QT. Assessment & Plan 89-year-old female who was found down after unwitnessed fall at [facility]. acute, active Unwitnessed ground-level fall, hx of recent multiple falls, POA, likely multifactorial: chronic hyponatremia with unsteady gait, possible urinary retention with micturition syncope, severe which was noted recently in 's note. CTH was unremarkable for acute pathology. -pt remained HD stable, no episode on telemetry. -consider consult cardiology for in house consultation for severe (no TTE reported was found in [facility], however, according to recent PCP's note worsening was noted on recent TTE, pt has appointment tomorrow 09/29 with -correct electrolytes and see this helps her gait -continue telemetry -Check echocardiogram limited Hyponatremia due to SIADH, present on admission, Sodium 126 on admission, AG of 17. -Sodium level improved with IVF, pt appeared euvolemic today, stop IVF, but start fluid restriction 800cc/hr for SIADH -Normal saline as above -Replace potassium 20meq oral TID with meals today and tomorrow -Lactic for 1800 tonight hypoMg/hypokalemia with mild anion gap acidosis, POA, potassium of 3.1 on admission, unclear etiology, possibly due subclinical hypothyroid statue, no signs of GI fluid loss. -K,Mg remained low today, replete as needed keep K>4 -consider follow up urine lytes to excluded renal wasting urinary retention, POA, resume flomax , follow up with chronic, stable #Hypertension; present admission; stable, Continue home BP meds, [id number], [id number] #prot caloric malnutirion, BMI21, continue diet #HTN-continue home diltiazem and losartan. #p afib-follow telemetry patient is not anticoagulated, not good candidate for AC given falls #hypothyroidism, TSH 9.19 slightly better 10.31 on 07/16 despite increase of LT4 to 112mcg, will continue it for now Disposition: likely 1-2more days, She remains full code per her POLST form VTE Mechanical Devices: Venous Foot Pump Resuscitation Status: CPR: Attempt Resuscitation Time spent 30 minutes Jackie Jeronimo MD Sep 29, 2016 19:53
[2016-09-30 01:15] VITALS: BP 153/72; PULSE 72; RESP 18; O2SAT 98
--- NOTE | 2016-09-30 03:15 | NUR ---
Urination Pt used call light to ask for assistance to bedside commode. Pt continent of urine, frequency noted. No complaints of pain or discomfort, no nausea, pt pleasantly confused. Will continue to monitor.
[2016-09-30 05:03] VITALS: BP 145/77; PULSE 78; RESP 18; O2SAT 97
[2016-09-30 05:18] VITALS: PULSE 73
[2016-09-30] MEDS: Diltiazem CD 120 mg ER24 Capsule PO SCH (07:48)
[2016-09-30 08:00] VITALS: PULSE 101
[2016-09-30 09:25] VITALS: BP 134/72; PULSE 88; RESP 18; O2SAT 98
--- NOTE | 2016-09-30 11:20 | PCM.DIMED ---
Discharge Instructions Date of Service Sep 30, 2016 Dates of Hospitalization Sep 27, 2016 at 13:31 Discharge Diagnosis Discharge Diagnosis Syncope,acute on chronic hyponatremia Diet Discharge Diet: Heart Healthy, Other (Free water restriction of 1.25 liters) Call your provider Call your provider for: Fever or Chills, Shortness of breath, Chest pain, Weakness (unilateral) Jackie Jeronimo MD Sep 30, 2016 11:20
--- NOTE | 2016-09-30 12:11 | NUR ---
[facility] Transfer: Faxed orders to [facility] and placed copy in the chart. Spoke with Victoriano in admissions and she is having her transportation pick patient up at 1500. Updated STORAGE MANAGEMENT ARCHITECT and RN
--- NOTE | 2016-09-30 12:13 | NUR ---
Social Work: Discharge / Multidisciplinary Rounds Data: Pt is on day 3 of hospitalization. EMR reviewed. Pt discussed in rounds. MD states pt likely ready for d/c today. D/C orders are in. PEST CONTROLLER notified UR specialist, transportation set up for 3PM today via cabulance set up by [facility]. No further d/c planning needs identified at this time. PEST CONTROLLER will continue to follow if needs arise. Assessment: Pt who is independent at baseline, not capable of self care at this time, going to SNF. Plan: Pt will d/c to [facility] today via cabulance at 3pm. RN, pt, notified. PEST CONTROLLER will continue to follow if needs arise. MARY Soriano
--- NOTE | 2016-09-30 12:27 | PCM.DC.MED ---
Discharge Summary Date of Service Sep 30, 2016 Dates of Hospitalization Date of Hospital Admission Sep 27, 2016 at 13:31 Date of Discharge: Sep 30, 2016 Providers: Admitting Physician: Ashwin Starr MD Primary Care Physician: La Cardona Attending Physician: Jackie Jeronimo MD Diagnosis at Time of Discharge Diagnosis at Time of Discharge Syncope,acute on chronic hyponatremia Procedures XRay, CTs & MRIs Chest x-ray 1. No definite acute traumatic abnormality. Dictated by: Chava Reich M.D. on 09/27/2016 at 9:54 Date of Service: 09/27/16 1446 PROCEDURE: CT BRAIN WITHOUT CONTRAST ([id number]) INDICATIONS: fall and confusion TECHNIQUE: Noncontrast 4.5 mm thick angled axial sections acquired from the foramen magnum to the vertex, with coronal reformats. COMPARISON: [facility], CT, CT BRAIN WO CON, 07/15/2016, 14:46. FINDINGS: Image quality: Excellent. CSF spaces: Basal cisterns are patent. No extra-axial fluid collections. The ventricles are symmetric in size and shape. Brain: No intracranial bleeds or masses. There is cerebral volume loss for age , with resultant ventricular and sulcal prominence. There are periventricular and deep white matter chronic small vessel ischemic changes. There is intracranial internal carotid artery atherosclerosis. Skull and face: Calvarium and visualized facial bones appear intact, without suspicious lesions. Sinuses: Visualized sinuses and mastoids are clear. IMPRESSION: No hemorrhage found, no trauma identified. Moderate microvascular atherosclerotic change in the deep white matter of each hemisphere, as was previously the case. Dictated by: Guido Camargo M.D. on 09/27/2016 at 16:44 Approved by: Guido Camargo M.D. on 09/27/2016 at 16:44 ECG 12 Lead Normal sinus rhythm with no concerning ST changes but no supple prolonged QT. Cardiac Echo Impression Date of Service: 09/29/[address] [address] Echocardiogram Report Name: TARIQ DIXON LStudy Date: 09/29/2016 Height: 60 in Hospital Exam Location: [facility] Weight: 112 lb Gender: Female BSA: 1.5 m2 : 1925 Age: 89 yrs BP: 148/74 mm Hg Reason For Study: Syncope Ordering Physician: Jackie Jeronimo Performed By: Blanca Aguirre Referring Physician: La Cardona Interpretation Summary Blue team Left ventricular wall thickness is mildly increased. The ejection fraction is estimated to be 65-70%. There is moderate mitral annular calcification. There is mild mitral regurgitation. The aortic valve is moderately calcified. The calculated aortic valve area is 1.2 cm2. The peak aortic velocity is 3.3 m/sec. The peak aortic velocity on the previous exam was 2.6 m/sec. There is moderate aortic stenosis. The right ventricular systolic pressure is estimated at 34 mmHg assuming a right atrial pressure of 15 mm Hg. Procedure: A two-dimensional transthoracic echocardiogram with color flow and Doppler was performed. The study quality was technically adequate. Comparison is made with the echocardiogram of 05/04/2012. The patient was in normal sinus rhythm during the exam. Left Ventricle: Left ventricular wall thickness is mildly increased. The ejection fraction is estimated to be 65-70%. There are no focal wall motion abnormalities. Right Ventricle: The right ventricle is normal in size and function. Atria: There is mild biatrial enlargement. There is no Doppler evidence for an interatrial shunt. Mitral Valve: There is moderate mitral annular calcification. The mitral valve mean gradient is 2.9 mmHg. No significant mitral valve stenosis. There is mild mitral regurgitation. Aortic Valve: The aortic valve is moderately calcified. Leaflet mobility is moderately reduced. The calculated aortic valve area is 1.2 cm2. The peak aortic velocity is 3.3 m/sec. The aortic valve mean gradient is 24 mmHg. The peak aortic velocity on the previous exam was 2.6 m/sec. The aortic valve area indexed to the BSA is 0.85 . There is moderate aortic stenosis. No aortic regurgitation is present. Tricuspid Valve: The tricuspid valve is normal in structure and function. The right ventricular systolic pressure is estimated at 34 mmHg assuming a right atrial pressure of 15 mm Hg. There is mild to moderate tricuspid regurgitation. Pulmonic Valve: The pulmonic valve is not well seen, but is grossly normal. Great Vessels: The aortic root is normal size. The ascending aorta is normal in size. The aortic arch is normal in size. The IVC is dilated (diameter is greater than 2.1 cm) and it collapses less than 50% with a sniff. This suggests a high right atrial pressure of 15 mm Hg. Pericardium/ Pleura There is no pericardial effusion. There is no pleural effusion. MMode/2D Measurements & Calculations LVIDd: 3.8 cm RA long axis LVOT diam: 1.9 cm LVIDs: 1.9 cm LA A2 area: 19.8 cm AoV Opening FS: 50.6 % LA A4 area: 20.6 cm RA area EPSS: 0.79 cm LA length (vol) Ao root diam IVSd: 1.3 cm : 17.3 cm LVPWd: 1.1 cm LA vol: 60.3 ml RA vol Aortic Jxn: 2.1 cm LA vol index : 50.6 ml asc Aorta Diam RA : 34.7 mm2 Ao Arch Diam (Prox IVC diam: 2.2 cm Trans): 2.5 cm LV orozco. diameter/BSA LV sys. diameter/BSA RVD1 (basal) RVD2 (mid): 2.5 cm (cm/m^2): 2.6 (cm/m^2): 1.3 TAPSE: 1.8 cm Doppler Measurements & Calculations Ao V2 max MV E max phil MV E/A: 0.73 TR max phil : 327.4 cm/sec : 108.6 cm/sec Med Peak E' Phil : 218.6 cm/sec Ao max PG MV A max phil TR max PG : 42.9 mmHg : 149.1 cm/sec E/E' med: 25.5 : 19.1 mmHg Ao mean PG MV P1/2t: 115.8 msec Lat Peak E' Phil PA V2 max : 24.1 mmHg : 65.6 cm/sec LVOT Max Phil MVA(VTI): 2.2 cm2 E/E' lat: 20.9 PA mean PG : 126.9 cm/sec E/e' average : 0.85 mmHg PA Accel Time SHERRIE(I,D): 1.2 cm : 0.08 sec sev ratio MV V2 mean MV P1/2t max phil Ao V2 mean LV V1 max PG : 78.5 cm/sec : 230.7 cm/sec MV mean PG MVA(P1/2t): 1.9 cm2 Ao V2 VTI: 71.6 cmLV V1 VTI SHERRIE(V,D): 1.1 cm2 : 31.3 cm MV V2 VTI: 40.0 cm MV dec time : 0.39 sec PA V2 mean SHERRIE indexed to BSA : 43.4 cm/sec (cm^2/m^2): 0.85 Electronically signed by: Kei Robles on Reading Physician:09/29/2016 04:03 PM Brief History 89-year-old female with a history of dementia, hypertension, rheumatoid arthritis who resides at [facility] presented to the emergency department this morning via EMS due to an unwitnessed fall. Staff found the patient laying near her bed, with some reports stating that she was under her bed. Patient does not number falling or how she got here and is a very poor historian. She has complaints of right arm pain related to her IV, but otherwise denies any focal pain. Patient reported the patient hitting her head. She denies ongoing abdominal pain, chest pain, shortness of breath, headache, dizziness, lightheadedness, racing heartbeat. No other information is available. Patient's last admission was July 15 of this year due to metabolic encephalopathy due to UTI. Blood work from the emergency department showed an elevated CK around 1300, actually abnormalities that seem to be chronic. Urinalysis was negative for signs of infection. CBC was suspicious for infection with a white count around 16,000. Chest x-ray was negative Hospital Course 89-year-old female who was found down after unwitnessed fall at [facility]. acute, active Unwitnessed ground-level fall, hx of recent multiple falls, POA, likely multifactorial: chronic hyponatremia with unsteady gait, possible urinary retention with micturition syncope, severe which was noted recently in 's note. CTH was unremarkable for acute pathology. -pt remained HD stable, no episode on telemetry. -consider consult cardiology for in house consultation for severe (no TTE reported was found in [facility], however, according to recent PCP's note worsening was noted on recent TTE, pt has appointment tomorrow 09/29 with -correct electrolytes and see this helps her gait -continue telemetry -Check echocardiogram limited which showed no new findings and moderate with preserved LVEF. Hyponatremia due to SIADH, present on admission, Sodium 126 on admission, AG of 17. 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 -Resolved urinary retention, POA, resume flomax , follow up with chronic, stable #Hypertension; present admission; stable, Continue home BP meds, [id number], [id number] #prot caloric malnutirion, BMI21, continue diet #HTN-continue home diltiazem and losartan. #p afib-follow telemetry patient is not anticoagulated, not good candidate for AC given falls #hypothyroidism, TSH 9.19 slightly better 10.31 on 07/16 despite increase of LT4 to 112mcg, will continue it for now Disposition: SNF She remains full code per her POLST form Exam Vital Signs (Last) Date Time Temp Pulse Resp B/P Pulse Ox O2 Delivery O2 Flow Rate FiO2 09/30/16 09:25 36.4 88 18 134/72 98 Room Air Exam Constitutional: Elderly female in bed in no acute distress Head: Normocephalic and traumatic Eyes: PERRLA DC EOMI Mouth: Normal mucosa Neck: No adenopathy Chest: Clear to auscultation Cor: Regular rate and rhythm S1-S2 with 2/6 systolic ejection murmur Abdomen: Soft nontender bowel sounds present Extremities: No pedal edema Skin: No rashes Psych: Mood and affect are appropriate Neuro: Alert and oriented 3, motor strength is intact bilaterally Laboratory Tests 72 Hours Test 09/27/16 17:58 09/28/16 07:05 09/29/16 06:43 Lactic Acid Level 0.9mmol/L (0.4-2.0) White Blood Count 6.9th/mm3 (3.8-10.1) 8.1th/mm3 (3.8-10.1) Red Blood Count 3.41mil/mm3 (3.90-5.20) 3.54mil/mm3 (3.90-5.20) Hemoglobin 10.1g/dL (12.0-15.6) 10.6g/dL (12.0-15.6) Hematocrit 30.6% (35.0-46.0) 31.6% (35.0-46.0) Mean Corpuscular Volume 89.7fL (81-100) 89.3fL (81-100) Mean Corpuscular Hemoglobin 29.6pg (27.0-35.0) 29.9pg (27.0-35.0) Mean Corpuscular Hemoglobin Concent 33.0% (32.0-37.0) 33.5% (32.0-37.0) Red Cell Distribution Width 13.4% (12.3-15.4) 13.3% (12.3-15.4) Platelet Count 240bil/L (150-400) 237bil/L (150-400) Neutrophils (%) (Auto) 61.2% (40-74) 68.1% (40-74) Lymphocytes (%) (Auto) 22.0% (14-46) 16.6% (14-46) Monocytes (%) (Auto) 13.8% (4-12) 11.8% (4-12) Eosinophils (%) (Auto) 2.3% (0-5) 2.9% (0-5) Basophils (%) (Auto) 0.4% (0-3) 0.2% (0-3) Sodium Level 131mEq/L (134-144) 132mEq/L (134-144) Potassium Level 3.0mEq/L (3.5-5.2) 3.6mEq/L (3.5-5.2) Chloride Level 96mEq/L (97-108) 96mEq/L (97-108) Carbon Dioxide Level 23mmol/L (18-29) 22mmol/L (18-29) Blood Urea Nitrogen 16mg/dL (8-27) 13mg/dL (8-27) Creatinine 0.59mg/dL (0.57-1.00) 0.62mg/dL (0.57-1.00) Estimat Glomerular Filtration Rate 137mL/min (>59) 130mL/min (>59) Glucose Level 80mg/dL (60-99) 94mg/dL (60-99) Calcium Level 8.8mg/dL (8.5-10.1) 8.7mg/dL (8.5-10.1) Phosphorus Level 3.0mg/dL (2.5-4.9) 2.9mg/dL (2.5-4.9) Magnesium Level 1.7mg/dL (1.6-2.6) 1.9mg/dL (1.6-2.6) Total Bilirubin 0.8mg/dL (0.0-1.2) 0.7mg/dL (0.0-1.2) Aspartate Amino Transf (AST/SGOT) 63U/L (0-50) 56U/L (0-50) Alanine Aminotransferase (ALT/SGPT) 20U/L (0-32) 20U/L (0-32) Alkaline Phosphatase 59U/L (25-165) 60U/L (25-165) Total Creatine Kinase 1040U/L (21-215) 633U/L (21-215) Total Protein 6.7g/dL (6.4-8.4) 6.9g/dL (6.4-8.4) Albumin 3.3g/dL (3.4-5.0) 3.4g/dL (3.4-5.0) Thyroid Stimulating Hormone (TSH) 9.190uIU/mL (0.450-4.500) Free Thyroxine 1.18ng/dL (0.82-1.77) Troponin T 0.010ug/L (0.0-0.011) Procalcitonin 0.05ng/mL (0.00-0.08) Test 09/27/16 09:40 09/27/16 17:58 09/28/16 07:05 09/29/16 06:43 Urine Color Yellow (YELLOW) Urine Appearance Hazy (CLEAR,HAZY) Urine pH 7.0 (5.0-8.0) Urine Specific [place] 1.020 (1.003-1.035) Urine Protein 100mg/dL (NEG,TRACE) Urine Glucose (UA) Negativemg/dL (NEGATIVE) Urine Ketones Negativemg/dL (NEGATIVE) Urine Occult Blood Moderate (NEGATIVE) Urine Nitrite Negative (NEGATIVE) Urine Bilirubin Negative (NEGATIVE) Urine Urobilinogen Normalmg/dL (NORMAL) Urine Leukocyte Esterase Negative (NEGATIVE) Urine RBC 0-2/hpf (0-2) Urine WBC 0-5/hpf (0-5) Urine Epithelial Cells Occasional/hpf (NONE-MOD) Urine Crystals Amorphous phosphates Urine Bacteria Few/hpf (NONE-FEW) Urine Hyaline Casts Occasional/lpf (NONE) Urine Granular Casts None seen (NONE SEEN) Urine Waxy Casts None seen (NONE SEEN) Urine Red Blood Cell Casts None seen (NONE SEEN) Urine White Blood Cell Casts None seen (NONE SEEN) Urine Mucus None seen (None Seen) Urine Trichomonas None seen (NONE SEEN) Urine Yeast None (NONE SEEN) Urinalysis Comment None Urine Culture Reflexed Not indicated Lactic Acid Level 0.9mmol/L (0.4-2.0) Thyroid Stimulating Hormone (TSH) 9.190uIU/mL (0.450-4.500) Free Thyroxine 1.18ng/dL (0.82-1.77) White Blood Count 8.1th/mm3 (3.8-10.1) Red Blood Count 3.54mil/mm3 (3.90-5.20) Hemoglobin 10.6g/dL (12.0-15.6) Hematocrit 31.6% (35.0-46.0) Mean Corpuscular Volume 89.3fL (81-100) Mean Corpuscular Hemoglobin 29.9pg (27.0-35.0) Mean Corpuscular Hemoglobin Concent 33.5% (32.0-37.0) Red Cell Distribution Width 13.3% (12.3-15.4) Platelet Count 237bil/L (150-400) Neutrophils (%) (Auto) 68.1% (40-74) Lymphocytes (%) (Auto) 16.6% (14-46) Monocytes (%) (Auto) 11.8% (4-12) Eosinophils (%) (Auto) 2.9% (0-5) Basophils (%) (Auto) 0.2% (0-3) Sodium Level 132mEq/L (134-144) Potassium Level 3.6mEq/L (3.5-5.2) Chloride Level 96mEq/L (97-108) Carbon Dioxide Level 22mmol/L (18-29) Blood Urea Nitrogen 13mg/dL (8-27) Creatinine 0.62mg/dL (0.57-1.00) Estimat Glomerular Filtration Rate 130mL/min (>59) Glucose Level 94mg/dL (60-99) Calcium Level 8.7mg/dL (8.5-10.1) Phosphorus Level 2.9mg/dL (2.5-4.9) Magnesium Level 1.9mg/dL (1.6-2.6) Total Bilirubin 0.7mg/dL (0.0-1.2) Aspartate Amino Transf (AST/SGOT) 56U/L (0-50) Alanine Aminotransferase (ALT/SGPT) 20U/L (0-32) Alkaline Phosphatase 60U/L (25-165) Total Creatine Kinase 633U/L (21-215) Troponin T 0.010ug/L (0.0-0.011) Total Protein 6.9g/dL (6.4-8.4) Albumin 3.4g/dL (3.4-5.0) Procalcitonin 0.05ng/mL (0.00-0.08) Discharge Medications Discharge Medications Ascorbate Calcium (Vitamin C) 500 Mg Tablet 1,000 MG PO DAILY (Reported) Calcium Carbonate (Calcium) 600 Mg Tablet 600 MG PO DAILY (Reported) Cholecalciferol (Vitamin D3) (Vitamin D3) 2,000 Unit Tablet 2,000 UNIT PO QAM ( Reported) Citalopram (Citalopram) 10 Mg Tablet 10 MG PO QAM (Reported) Cyanocobalamin (Vitamin B12) 500 Mcg Tablet 500 MCG PO QAM (Reported) Denosumab (Prolia) 60 Mg/1 Ml Syringe 60 MG SQ d1uscgbc (Reported) Diltiazem ER (Diltiazem ER) 120 Mg Cap.er.24h 120 MG PO QAM (Reported) Gluc/Eyal-MSM#1/Vit C/James/Bor (Icromne-Frybh-FAH Complex Cplt) 1 Each Tablet 1 EACH PO DAILY (Reported) Levothyroxine (Levothyroxine) 112 Mcg Tablet 112 MCG PO DAILY (Reported) Losartan Potassium (Losartan Potassium) 100 Mg Tablet 100 MG PO QAM (Reported) Multivitamin (Once Daily) 1 Each Tablet 1 EACH PO DAILY (Reported) [place]-3/Dha/Epa/Fish Oil (Fish Oil 1,000 mg Softgel) 1 Each Capsule 1 EACH PO QAM (Reported) Tamsulosin (Flomax) 0.4 Mg Capsule 0.4 MG PO HS (Reported) As needed Acetaminophen (Acetaminophen) 325 Mg Tablet 325-650 MG PO q4 hours PRN PRN For Pain (Reported) Bisacodyl (Dulcolax Rectal) 10 Mg Supp.rect 10 MG RC DAILY PRN PRN no bm x 12 shifts (Reported) Magnesium Hydroxide (Milk of Magnesia) 400 Mg/5 Ml Oral.susp 30 ML PO prn PRN PRN no BM in 9 shifts. (Reported) Na Phos,M-B/Na Phos,Di-Ba (Fleet Enema) 133 Ml Enema 133 ML RC prn PRN PRN no BM x 15 shifts. (Reported) Followup Plan Disposition: [facility] Discharge Diet: Heart Healthy, Other (Free water restriction of 1.25 liters) Time spent 60 minutes Jackie Jeronimo MD Sep 30, 2016 12:27
[2016-09-30 13:25] VITALS: BP 121/63; PULSE 62; RESP 18; O2SAT 95
--- NOTE | 2016-09-30 15:29 | NUR ---
DISCHARGE Patient discharged to [facility] at 1515, off floor by wheelchair accompanied by facility staff. Vitals stable, denies pain and in no apparent distress. All belongings returned, IV discontinued intact. Report called to Jessa, nurse, at facility. Paperwork packet with facility transportation program director.
== END 2016-09-30 15:17 | DRG 644 ==
LOC: SED 08:23 → MPC 13:31 → OBSVTOIN 13:31 → INTOOBSV 13:31
PROVIDERS: ADMIT Internal Medicine; ATTEND Specialist
DX: E22.2 Syndrome of inappropriate secretion of antidiuretic hormone (principal); E46 Unspecified protein-calorie malnutrition; F03.90 Unspecified dementia, unspecified severity, without behavioral disturbance, psychotic disturbance, mood disturbance, and anxiety; I10 Essential (primary) hypertension; M06.9 Rheumatoid arthritis, unspecified; T79.6XXA Traumatic ischemia of muscle, initial encounter; W06.XXXA Fall from bed, initial encounter; E87.6 Hypokalemia; K21.9 Gastro-esophageal reflux disease without esophagitis; E78.5 Hyperlipidemia, unspecified; E03.9 Hypothyroidism, unspecified; E83.42 Hypomagnesemia; R33.9 Retention of urine, unspecified; Z91.81 History of falling; Z68.21 Body mass index [BMI] 21.0-21.9, adult

== ENCOUNTER 2016-11-28 12:47 | Observation (INO) | payer MEDICARE, OTHER ==
[~2016-11-28] VITALS: Ht 162.6 cm; Wt 51.0 kg
[2016-11-28] VITALS (7 sets, daily range): BP systolic 110–150; BP diastolic 62–88; PULSE 72–93; RESP 16–24; O2SAT 95–97
[~2016-11-28 12:47] MED LIST changes: +ACET325T51 PO; +ASCO-294 PO; -ASCO100089 PO; +BISA10SU61 RC; +CALC600T12 PO; -CALC600T20 PO; -GLUC-167 PO; +GLUC-91 PO; +LEVO112T4 PO; -LEVO88TA4 PO; +MAGN400O4 PO; -MULT-140 PO; +MULT-666 PO; +NA P133E23 RC; +TAMS0.4C98 PO
--- NOTE | 2016-11-28 13:52 | ED.REPORT ---
HPI-Extremity Problem Lower Date of Service Nov 28, 2016 ED Provider: Francisco Ndiaye MD The pt is an 89 y/o female with a hx of dementia, hypertension, a-fib, rheumatoid arthritis and falls who presents to the ED from [facility] complaining of left hip pain, onset this morning after she fell and landed on it. She was able to bear weight on her left hip and is ambulatory. She hit her head and reports a small bump on the back of the head. She did not lose consciousness. Nursing Notes Stated Complaint: GROUND LEVEL FALL Chief Complaint: Extremity Trauma Nursing Notes Reviewed: Yes Allergies: Coded Allergies: iodine (Verified Allergy, Mild, RASH AND IRRITATION, 09/27/16) FRANCISCO J Inhibitors (Verified Allergy, Unknown, 09/27/16) atenolol (Verified Allergy, Unknown, 09/27/16) atorvastatin (Verified Allergy, Unknown, 09/27/16) hydroxychloroquine (Verified Allergy, Unknown, 09/27/16) Scheduled Ascorbate Calcium (Vitamin C) 500 Mg Tablet 1,000 MG PO DAILY Calcium Carbonate (Calcium) 600 Mg Tablet 600 MG PO DAILY Cholecalciferol (Vitamin D3) (Vitamin D3) 2,000 Unit Tablet 2,000 UNIT PO QAM Citalopram (Citalopram) 10 Mg Tablet 10 MG PO QAM Cyanocobalamin (Vitamin B12) 500 Mcg Tablet 500 MCG PO QAM Denosumab (Prolia) 60 Mg/1 Ml Syringe 60 MG SQ [id number] Diltiazem ER (Diltiazem ER) 120 Mg Cap.er.24h 120 MG PO QAM Gluc/Eyal-MSM#1/Vit C/James/Bor (Jptpezu-Vwbra-MHK Complex Cplt) 1 Each Tablet 1 EACH PO DAILY Levothyroxine (Levothyroxine) 112 Mcg Tablet 112 MCG PO DAILY Losartan Potassium (Losartan Potassium) 100 Mg Tablet 100 MG PO QAM Multivitamin (Once Daily) 1 Each Tablet 1 EACH PO DAILY [place]-3/Dha/Epa/Fish Oil (Fish Oil 1,000 mg Softgel) 1 Each Capsule 1 EACH PO QAM Tamsulosin (Flomax) 0.4 Mg Capsule 0.4 MG PO HS Scheduled PRN Acetaminophen (Acetaminophen) 325 Mg Tablet 325-650 MG PO q4 hours PRN PRN For Pain Bisacodyl (Dulcolax Rectal) 10 Mg Supp.rect 10 MG RC DAILY PRN PRN no bm x 12 shifts Magnesium Hydroxide (Milk of Magnesia) 400 Mg/5 Ml Oral.susp 30 ML PO prn PRN PRN no BM in 9 shifts. Na Phos,M-B/Na Phos,Di-Ba (Fleet Enema) 133 Ml Enema 133 ML RC prn PRN PRN no BM x 15 shifts. General Time Seen by MD: 14:28 Chief Complaint Hip injury left Hx Obtained From: Patient Arrived By: Walk-in Onset Occurred: 1 - 4 hours ago Symptom Duration: Since onset Caused by: Fall on ground Location: : Hip left Quality: Painful Severity: Current: Moderate Severity: Maximum: Severe Recent Healthcare: Recent doctor visit Similar Sx Previous: Yes Past Medical History Past Medical History Notes: Code status: DNR Past Medical History Rheumatoid arthritis Diverticulitis Not on anticoagulants Mild dementia Reports: Hypertension Reports: Atrial fibrillation, Depression, Thyroid disease Past Surgical History Reports: Cataract surgery, Cholecystectomy Reports: Tubal ligation Smoking History Never Smoker Social History lives on the independent side at [facility] Alcohol Use: Denies alcohol use Drug Use: Denies drug use Other Social History: Good social support, Lives alone Ambulatory Status Independent Review of Systems Reports: small bump on the head Musculoskeletal: Reports: Joint pain (left hip) Neurologic: Denies: Change LOC Complete sys rev & neg: except as marked. Physical Exam Initial Vital Signs Vital Signs (First) Date Time Temp Pulse Resp B/P Pulse Ox O2 Delivery O2 Flow Rate FiO2 11/28/16 13:27 37.4 90 24 133/88 96 Room Air Initial VS: Reviewed Head / Eyes: Atraumatic, Normocephalic, PERRL Neck: Supple, Non-tender, Full range of motion Respiratory: Breath sounds normal, Clear to auscultation, No respiratory distress Cardiovascular: Regular rate & rhythm, Heart sounds normal, Intact distal pulses Upper Extremities: Vascular intact, Neuro intact, No swelling, No tenderness Skin: Warm, Dry, No cyanosis Neurologic: Alert, Oriented, Nonfocal Psychiatric: Mood/affect normal, Behavior normal, Normal thought content Lower Extremity / Pelvis / MS: Atraumatic, Inspection NL, No deformity, Neurologic intact, Vascular intact Left hip tenderness. Pain with range of motion. Ankle / Foot: Atraumatic, Full range of motion, No swelling, Non-tender, No deformity, Neurologic intact, Vascular intact General/Constitutional: Awake, Alert, Cooperative Distress / Hydration: Positive: Distress mild Interpretation & Diagnostics PROCEDURE: CT HIP LEFT W/O CONTRAST (69982) IMPRESSION: 1. Right superior and inferior pubic rami fractures, as well as a very minimal extension into the left acetabulum as above. In addition, there is an adjacent hematoma. 2. Central pelvic low attenuation structure as above most consistent with a cystic focus. While this could represent a midline adnexal cystic lesion such as cyst or even cystic neoplasm, other pelvic etiologies of cystic mass cannot be excluded. As clinically indicated, pelvic ultrasound may be obtained to further delineate relationship to the adnexal region. Dictated by: Chacha Lundberg M.D. on 11/28/2016 at 15:58 Approved by: Chacha Lundberg M.D. on 11/28/2016 at 16:10 Lab Results Interpretation Result Diagram: 11/29/16 0505 11/29/16 0505 Test 11/28/16 16:22 Magnesium Level 1.7mg/dL (1.6-2.6) Total Bilirubin 0.9mg/dL (0.0-1.2) Aspartate Amino Transf (AST/SGOT) 24U/L (0-50) Alanine Aminotransferase (ALT/SGPT) 16U/L (0-32) Alkaline Phosphatase 62U/L (25-165) Total Protein 7.8g/dL (6.4-8.4) Albumin 3.5g/dL (3.4-5.0) Thyroid Stimulating Hormone (TSH) 2.990uIU/mL (0.450-4.500) Free Thyroxine 1.52ng/dL (0.82-1.77) Hold Vasquez Top Tube Received (Received) X-Ray Interpretation Xray Interpretation: IMPRESSION: Superior and inferior pubic rami fractures on the left. Hip appears intact. Dictated by: Chacha Lundberg M.D. on 11/28/2016 at 14:38 Approved by: Chacha Lundberg M.D. on 11/28/2016 at 14:39 X-Ray Ordered: Hip left Interpretation / Wet Read by: Interpret - Radiologist Re-Eval/Medical Decision Med Decision/Clinical Course 89-year-old female with dementia presenting status post, fall onto left hip. CT scan shows pelvic fractures no hip fracture. She does have a hematoma. I discussed with the radiologist and given no IV contrast there was no ability to visualize extravasation. She is hemodynamically stable mild tachycardia. No hypotension. Her hemoglobin is stable at 10. She will be admitted for trending her hemoglobin and orthopedic to see. 50% weightbearing as tolerated with walker per orthopedics. Source of Hx: Old records Re-Evaluation/Progress #1: Time of Eval: 14:32 Re-Evaluation/Progress Note: Discussed xray results and plan to do a CT. Discussed the plan to discharge the pt depending on the CT results. Both the pt and her understand and agree with the plan. All questions answered. Re-Evaluation/Progress #2: Time of Eval: 17:00 Re-Evaluation/Progress Note: Discussed the plan to admit. The pt understands and agrees with the plan. All questions answered. Consultation #1: Referral / Consult Name: John Anand DO Consulted With: Orthopedic Call Returned at: 15:52 Paving And Surfacing Labourer: Will see in office, Agrees with eval, Agrees with plan Note: Recommends discharging the pt with weight bearing as tolerated and with instructions to follow up tomorrow. Consultation #2: Referral / Consult Name: John Anand DO Consulted With: Orthopedic Call Returned at: 16:57 Paving And Surfacing Labourer: Will see patient, Agrees with eval, Agrees with plan Note: Recommends admission for observation. 50% weight bearing as tolerted and a walker Consultation #3: Referral / Consult Name: Angelita Yeboah DO Consulted With: Hospitalist Call Returned at: 17:22 Paving And Surfacing Labourer: Will see patient, Agrees with eval, Agrees with plan, Accepts admit Counseled Regarding: Diagnosis, Need for follow-up, When/why to return to ED Discharge & Departure Impression: Primary Impression: Pelvic fracture Additional Impression: Fall Encounter type: initial encounter Qualified Code: W19.XXXA - Unspecified fall, initial encounter Disposition: Home Discharge Condition All VS Reviewed: Yes Condition: Stable Patient Instructions: Fall Prevention (ED) Referrals: La Cardona (PCP) Conrad Roman DO (Family) Scribe Attestation Portions of this note were transcribed by Mary Paul. I,Dr. Ndiaye, personally performed the history,physical exam and medical decision-making;I reviewed and confirmed the accuracy of the information in the transcribed note. Signed by India Mejia. 11/27/16 copies to: La Cardona; Conrad Roman Ben M MD Nov 28, 2016 13:52 Mary Paul Nov 28, 2016 14:33 Discussed xray results and plan to do a CT. Discussed the plan to discharge the pt depending on the CT results. Both the pt and her understand and agree with the plan. All questions answered. Re-Evaluation/Progress #2: Time of Eval: 17:00 Re-Evaluation/Progress Note: Discussed the plan to admit. The pt understands and agrees with the plan. All questions answered. Consultation #1: Referral / Consult Name: John Anand DO Consulted With: Orthopedic Call Returned at: 15:52 Paving And Surfacing Labourer: Will see in office, Agrees with eval, Agrees with plan Note: Recommends discharging the pt with weight bearing as tolerated and with instructions to follow up tomorrow. Consultation #2: Referral / Consult Name: John Anand DO Consulted With: Orthopedic Call Returned at: 16:57 Paving And Surfacing Labourer: Will see patient, Agrees with eval, Agrees with plan Note: Recommends admission for observation. 50% weight bearing as tolerted and a walker Consultation #3: Referral / Consult Name: Angelita Yeboah DO Consulted With: Hospitalist Call Returned at: 17:22 Paving And Surfacing Labourer: Will see patient, Agrees with eval, Agrees with plan, Accepts admit Counseled Regarding: Diagnosis, Need for follow-up, When/why to return to ED Discharge & Departure Impression: Primary Impression: Left hip pain Additional Impression: Fall Encounter type: initial encounter Qualified Code: W19.XXXA - Unspecified fall, initial encounter Disposition: Home Discharge Condition All VS Reviewed: Yes Condition: Stable Patient Instructions: Fall Prevention (ED) Referrals: La Cardona (PCP) Conrad Roman DO (Family) [place] Attestation Portions of this note were transcribed by Mary Paul. I,, personally performed the history,physical exam and medical decision-making;I reviewed and confirmed the accuracy of the information in the transcribed note. Signed by India Mejia. 11/27/16 copies to: La Cardona; Conrad Roman Ben M MD Nov 28, 2016 13:52 Mary Paul Nov 28, 2016 14:33
--- NOTE | 2016-11-28 14:40 | DRSVH ---
PROCEDURE: X-RAY LEFT HIP COMPLETE, MINIMUM TWO VIEWS ([id number]) INDICATIONS: trauma TECHNIQUE: AP pelvis with lateral view(s) of the left hip(s). COMPARISON: None. FINDINGS: Bones: There is a fracture of the lateral aspect of the left superior pubic ramus. In addition, fract ure is also identified in the left inferior pubic ramus. Soft tissues: The visualized bowel gas pattern is normal. No suspicious soft tissue calcifications. IMPRESSION: Superior and inferior pubic rami fractures on the left. Hip appears intact. Dictated by: Chacha Lundberg M.D. on 11/28/2016 at 14:38 Approved by: Chacha Lundberg M.D. on 11/28/2016 at 14:39
--- NOTE | 2016-11-28 16:11 | DRSVH ---
PROCEDURE: CT HIP LEFT W/O CONTRAST ([id number]) INDICATIONS: L hip pain s/p fall TECHNIQUE: Noncontrast 3 mm axial sections acquired through the bony pelvis. Additional 3 mm axial sections acq uired through the symptomatic hip joint, with coronal and sagittal reformats. COMPARISON: [facility], CT, ABD/PELVIS W/CON (PNL), 01/05/2010, 15:26. FINDINGS: Image quality: Excellent. Bones: There is a fracture of the superior lateral aspect of the left pubic ramus at the margin of th e superior acetabulum. Very minimal extension of fracture into the acetabulum is felt to be present. There is a mid left inferior pubic ramus fracture. Old right inferior pubic ramus fracture is present . Left hip is intact. Compression deformities of the lower lumbar spine are present, appearing chroni c. Soft tissues: There is prominent stool throughout the visualize colon as well as colonic diverticula. There is a relatively hyperdense focus in the left lower pelvis immediately superior to the superior ramus fracture measuring 40 mm AP by 52 mm transverse, Hounsfield units measuring 55. Within the mid pelvis, superior to the bladder, there is a well-circumscribed focus of hypoattenuation during 58 mm AP by 1263 mm transverse. It is noted at a left lower pelvic structure was identified in the adnexal region measuring 38 mm AP by 40 mm transverse on 01/05/10. That is no longer visualized. The central structure does displace the bladder to the right. IMPRESSION: 1. Right superior and inferior pubic rami fractures, as well as a very minimal extension into the lef t acetabulum as above. In addition, there is an adjacent hematoma. 2. Central pelvic low attenuation structure as above most consistent with a cystic focus. While this could represent a midline adnexal cystic lesion such as cyst or even cystic neoplasm, other pelvic et iologies of cystic mass cannot be excluded. As clinically indicated, pelvic ultrasound may be obtaine d to further delineate relationship to the adnexal region. Dictated by: Chacha Lundberg M.D. on 11/28/2016 at 15:58 Approved by: Chacha Lundberg M.D. on 11/28/2016 at 16:10
[2016-11-28 16:32] LABS: BASOPHILS % (AUTO) 0.1 % (0-3); EOSINOPHILS % (AUTO) 0.1 % (0-5); MONOCYTES % (AUTO) 6.6 % (4-12); Mean Corpuscular Hemoglobin 29.2 pg (27.0-35.0); Mean Corpuscular Volume 87.3 fL (81-100); NEUTROPHILS % (AUTO) 84.4 % (40-74); Platelet Count 185 bil/L (150-400)
[2016-11-28] MEDS ORDERED: Ketorolac 15 mg/mL Inj IVPUSH ONE (17:05)
[2016-11-28] MEDS ORDERED: Polyethylene Glycol (PEG) 17 Gm Powder PO PRN (17:25)
[2016-11-28] MEDS ORDERED: Alum-Mag Hydrox-Simeth 30 mL Suspension PO PRN (17:25)
[2016-11-28] MEDS ORDERED: Ondansetron 2 mg/mL 2 mL Inj IVPUSH PRN (17:25)
--- NOTE | 2016-11-28 18:39 | NUR ---
ARRIVAL TO [facility] Patient arrived to [facility] at 1830, son and patient oriented to room and hospital policies. WBC 14.3, Na 130 Hx of SIDH, Telemetry SR 73, RA, Zapien, abdomen tenderness, draining clear urine, PLAN- ortho to see tomorrow, CT scan question cystic, US tomorrow.
[2016-11-28 19:32] LABS: APPEARANCE,URINE CLEAR (CLEAR,HAZY); COLOR,URINE YELLOW (YELLOW); OCCULT BLOOD,URINE NEGATIVE (NEGATIVE); UROBILINOGEN,URINE NORMAL (NORMAL)
--- NOTE | 2016-11-28 19:44 | PCM.HPMED ---
Subjective Date of Service Nov 28, 2016 Primary Provider: Admitting Physician: Primary Care Physician: Conrad Roman DO Attending Physician: Admit Status: From the Emergency Department, 23-Hour Observation, Admit to [facility] Team Chief Complaint: Left hip pain. . History of Present Illness: Deepa Melendez is an 89-year-old poor historian female with past medical history significant for dementia, SIADH unclear etiology, hypertension, and paroxysmal atrial fibrillation who presented to [facility] emergency Department from [facility] after she endured a ground- level fall with left hip pain. Due to the patient's underlying dementia the majority of the history of present illness was obtained from her son at the bedside. The patient's son reports that she had an unwitnessed ground level fall today. She endured some minor trauma to her head and has a small bruise on the left Delvin border of her mouth. It was reported that she did not lose consciousness. She denies headache, vision changes, lightheadedness or dizziness, sore throat, cough, chest pain, shortness of breath, abdominal pain, nausea, vomiting, fever, chills, dysuria, constipation or diarrhea. She does endorse left hip pain with movement. She is comfortable at rest. Vital signs in the ER: Temperature 37.4. Pulse 90. Respiratory rate 24. Blood pressure 133/88. Pulse ox 96% room air. She received acetaminophen PO 975 mg 1 in the ED. PCP is Dr. Conrad Roman. Review of Systems: A comprehensive review of systems was conducted with the patient and found to be negative except as above in the History of Present Illness. . Allergies Coded Allergies: iodine (Verified Allergy, Mild, RASH AND IRRITATION, 09/27/16) FRANCISCO J Inhibitors (Verified Allergy, Unknown, 09/27/16) atenolol (Verified Allergy, Unknown, 09/27/16) atorvastatin (Verified Allergy, Unknown, 09/27/16) hydroxychloroquine (Verified Allergy, Unknown, 09/27/16) Home Medications Acetaminophen 650 mg every 4 hours as needed for pain. Biscodyl 10 mg rectally daily as needed. Calcium carbonate 600 mg daily. Citalopram 10 mg daily. Prolia 60 mg subcutaneous every 6 months. Diltiazem 120 mg daily. Fleet enema as needed for constipation. Levothyroxine 112 g daily. Losartan 100 mg daily. Magnesium hydroxide 30 mL as needed for constipation. Multivitamin daily Hammett-3 1000 mg daily Tamsulosin 0.4 mg daily at bedtime. Vitamin B12 500 g daily Vitamin C 1000 mg daily. Vitamin D3 2000 international units daily. . PMH 1. Osteoporosis 2. SIADH, unclear etiology. 3. Dementia. 4. Hypertension. 5. Paroxysmal atrial fibrillation. 6. Depression. 7. Hypothyroidism. 8. Aortic stenosis. 9. Chronic constipation. 10. Urge incontinence. . Surgical History 1. Bilateral cataract extraction. 2. Cholecystectomy. 3. Tubal ligation. . Family History Mother who of ovarian cancer. Father who of old age. . Social History Hx Alcohol Use: No Hx Substance Use: No Hx Tobacco Use: No Smoking Status: Never Smoker Additional Information She is and was for 65 years. She has 1 son and 1 daughter. Her son is healthy. Her daughter had breast cancer status post lumpectomy but is otherwise healthy. . Exam Vital Signs Vital Sign - Last Date Time Temp Pulse Resp B/P Pulse Ox O2 Delivery O2 Flow Rate FiO2 11/28/16 16:55 87 19 131/75 97 Room Air 11/28/16 13:27 37.4 Exam General: Elderly demented female lying in bed and in no acute distress, well- developed, well-nourished, appropriately interactive. HEENT: Normocephalic, atraumatic. External ears without defect. Pupils equal, round, and reactive to light. Anicteric sclerae, moist conjunctivae, and no lid lag. Small bruise on left Gratis border of mouth. Oropharynx free of erythema and cobble stoning with moist mucosa. Neck: Supple with full range of motion. No jugular venous distension. No bruits. No lymphadenopathy or thyromegaly. Cardiovascular: Regular rate and rhythm with soft holosystolic murmur. No rubs or gallops appreciated. Pulmonary: Clear to auscultation bilaterally without crackles, wheezes, or rhonchi. Normal respiratory effort with no use of accessory muscles. Abdomen: Soft, nontender, nondistended, bowel sounds present. No hepatosplenomegaly or masses appreciated. Tenderness to palpation suprapubically on the left. Extremities: No clubbing, cyanosis, or edema. Skin: Normal temperature, turgor, and texture; no rash, ulcers, or subcutaneous nodules appreciated. Neurological: Cranial nerves grossly intact. Normal muscle strength, tone, and bulk. Reflexes, coordination, and sensory function within normal limits. Known gait impairment and uses FWW. Psychiatric: Normal mood and affect. Alert and oriented to person, place, and time. . Lab and Diagnostics Labs Item Value Date Time Calcium Level 9.4 mg/dL 11/28/16 162 Magnesium Level 1.7 mg/dL 11/28/16 1622 Total Bilirubin 0.9 mg/dL 11/28/16 1622 Aspartate Amino Transf (AST/SGOT) 24 U/L 11/28/16 1622 Alanine Aminotransferase (ALT/SGPT) 16 U/L 11/28/16 1622 Alkaline Phosphatase 62 U/L 11/28/16 1622 Total Protein 7.8 g/dL 11/28/16 1622 Albumin 3.5 g/dL 11/28/16 1622 Thyroid Stimulating Hormone (TSH) 2.990 uIU/mL 11/28/16 1622 Free Thyroxine 1.52 ng/dL 11/28/16 1622 Result Diagram: 11/28/16 1622 11/28/16 162 X-Rays, CTs and MRIs X-RAY LEFT HIP COMPLETE, MINIMUM TWO VIEWS IMPRESSION: Superior and inferior pubic rami fractures on the left. Hip appears intact. Dictated by: Chacha Lundberg M.D. on 11/28/2016 at 14:38 CT HIP LEFT W/O CONTRAST IMPRESSION: 1. Right superior and inferior pubic rami fractures, as well as a very minimal extension into the left acetabulum as above. In addition, there is an adjacent hematoma. 2. Central pelvic low attenuation structure as above most consistent with a cystic focus. While this could represent a midline adnexal cystic lesion such as cyst or even cystic neoplasm, other pelvic etiologies of cystic mass cannot be excluded. As clinically indicated, pelvic ultrasound may be obtained to further delineate relationship to the adnexal region. Dictated by: Chacha Lundberg M.D. on 11/28/2016 at 15:58 . Assessment & Plan Deepa Melendez is an 89-year-old poor historian female with past medical history significant for dementia, SIADH unclear etiology, hypertension, and paroxysmal atrial fibrillation who presented to [facility] emergency Department after she endured a ground-level fall with left hip pain. 1. Acute superior and inferior pubic rami fractures on the left with hematoma, present on admission. Active. - Patient presented after ground-level fall with acute left hip pain. Afebrile with leukocytosis which is likely reactive in etiology. - Differential diagnosis includes: mechanical fall versus syncope secondary to aortic stenosis versus possible UTI versus dehydration and hypotension secondary to SIADH. - Hip x-ray and CT hip demonstrated superior and inferior pubic rami fractures with slight extension to the acetabulum on the left with hematoma, as above - Ordered physical therapy. - Ordered urinalysis with culture if indicated, pending. - TSH and free T4 within normal limits, as above. - Ordered Tylenol 975 mg every 6 hours as needed for [id number] pain and hydrocodone 5-325 mg every 4 hours as needed for severe pain. - Orthopedic surgeon was consulted, Dr. Anand , who recommends 50% weightbearing , monitoring of hemodynamics, and physical therapy. He plans to see the patient tomorrow and we appreciate his time and recommendations. 2. Incidental central pelvic cystic focus, under evaluation. Active. - CT hip demonstrated central pelvic low attenuation structure as above most consistent with a cystic focus, as above. - Order pelvic ultrasound to further delineate cystic focus. Chronic problems: 3. Osteoporosis, present on admission. - Patient is on Prolia as an outpatient ever 6 months. - We appreciate orthopedic recommendations. 4. SIADH, unclear etiology, present on admission. Presumed stable. - Unclear etiology but may be secondary to patient's SSRI versus underlying neoplasm. - Placed fluid restriction of 2000 mL. 5. Dementia, present on admission. Stable. - Reorientation frequently. 6. Hypertension, present on admission. Stable. - Continue losartan 100 mg daily and diltiazem 120 mg daily. 7. Urge incontinence, present on admission. Stable. - Continue tamsulosin 0.4 mg daily at bedtime. 8. Paroxysmal atrial fibrillation, present on admission. Stable. - Continue diltiazem 120 mg daily. 9. Depression, present on admission. Stable. - Continue citalopram 10 mg daily. 10. Hypothyroidism, present on admission. Stable. - Continue levothyroxine 112 g daily. - TSH and free T4 within normal limits, as above. PRN antiemetics: Zofran and Maalox. PRN bowel regimen: Senna and MiraLAX. PRN analgesics: Tylenol. Patient is admitted under observation status with expected length of stay less than 2 midnights due to severity of presenting symptoms, risk of adverse event, and complexity of treatment plan. . Pain Evaluation: Adequate Pain Control VTE Prophylaxis: Sub-Q Heparin (Unfractionated) Resuscitation Status: Limited Interventions (DO NOT INTUBATE) copies to: Conrad Roman Georgia M DO Nov 28, 2016 17:27
[2016-11-29 00:20] VITALS: BP 137/71; PULSE 72; RESP 16; O2SAT 97
[2016-11-29] MEDS: Heparin 5,000 Unit/mL Inj SUBQ SCH ×3 (03:06→17:34)
[2016-11-29 05:15] VITALS: BP 148/78; PULSE 90; RESP 16; O2SAT 98
[2016-11-29 05:45] LABS: BASOPHILS % (AUTO) 0.3 % (0-3); EOSINOPHILS % (AUTO) 1.2 % (0-5); MONOCYTES % (AUTO) 10.8 % (4-12); Mean Corpuscular Hemoglobin 28.3 pg (27.0-35.0); NEUTROPHILS % (AUTO) 71.5 % (40-74); Platelet Count 181 bil/L (150-400)
--- NOTE | 2016-11-29 06:06 | NUR ---
Pain/Forgetful Patient is alert and oriented, but forgetful - dementia at baseline. Pain managed with acetaminophen. Patient called out to nurse several times. Use of call light re-enforced. Patient reported needing to have a BM, but was unsuccessful on the bed green. Zapien catheter patent and draining dark yellow/marsha urine to gravity. Patient has not attempted to get out of bed, but bed alarm on for safety, as patient has dementia and history of falls. Bed down, rails up, call light in reach, positioned near nurse's station. Care continues.
--- NOTE | 2016-11-29 08:05 | CONS ---
[address] [address] CONSULTATION REPORT PATIENT: TARIQ DIXON : 1925 MR#: [id number] ADMIT: 11/28/2016 JOB ID: [id number] DATE OF SERVICE: 11/29/2016 CHIEF COMPLAINT: Left hip pain. HISTORY OF PRESENT ILLNESS: The patient is an 89-year-old female, with a history of dementia, who [facility]. She states she was unable to ambulate after the fall. She denies any pain in her hip at this time at rest, but states that she does have pain with any attempt at range of motion. PAST MEDICAL HISTORY: Significant for SIADH, hypertension, paroxysmal atrial fibrillation, and dementia. ALLERGIES: From the chart: 1. IODINE. 2. FRANCISCO J INHIBITORS. 3. ATENOLOL. 4. ATORVASTATIN. 5. HYDROXYCHLORQUINE. PAST SURGICAL HISTORY: Cataract extraction, cholecystectomy, tubal. PHYSICAL EXAMINATION: Blood pressure 148/78, pulse rate 90, respirations 16, temperature 36.4. She is alert and cooperative, in no acute distress. Her left hip, skin is intact. She has pain with range of motion of the left hip. She is unable to straight leg raise. Her pain is in the groin. She is able to move her toes and her sensation is intact to bilateral lower extremities. Her dorsalis pedis pulse is +2. She has no calf pain. No significant edema. DIAGNOSTIC STUDIES: X-rays and CT scan were reviewed and demonstrate a left inferior superior pubic ramus fracture at the pubic root adjacent to the acetabulum. ASSESSMENT: Left inferior superior pubic ramus fracture at the pubic root. PLAN: Recommend 50% partial weightbearing with a walker, working with physical therapy for a likely period of six weeks, with recheck and x-rays at that time.
[2016-11-29 10:04] VITALS: PULSE 81
--- NOTE | 2016-11-29 11:51 | NUR ---
Case Management: MOORE given and explained to Cory pedroza. Maria De Jesus SINGER,RN
--- NOTE | 2016-11-29 12:06 | PCM.DIMED ---
Discharge Instructions Date of Service Nov 29, 2016 Dates of Hospitalization Nov 28, 2016 at 17:44 Discharge Diagnosis Discharge Diagnosis Left inferior superior pubic ramus fracture at the pubic root. Diet Discharge Diet: Heart Healthy, Other (Free water restriction upto 1500ml) Activity Discharge Activity: Other (Physical therapy at [place] ) Call your provider Call your provider for: Shortness of breath, Excessive diarrhea Patient Instructions Patient Instructions Recommend 50% partial weightbearing with a walker, working with physical therapy for a likely period of six weeks, with recheck and x-rays at that time. Follow-up with PCP in: 1 week Additional Information Outpatient workup for the cystic mass. Sumeet Bridges MD Nov 29, 2016 12:06
--- NOTE | 2016-11-29 13:33 | NUR ---
Evaluation completed. Please go to "Notes" then click on "Assessments and Notes" (bottom left corner of screen). Then select appropriate discipline tab on top of screen.
--- NOTE | 2016-11-29 14:02 | NUR ---
ASSISTED TRANSFER : Gave access and faxed facesheet to [facility]. Spoke with Hellen Cardenas director private music therapy agency [phone] and let her know there is one test pending and patient may be ready for return today. Updated SANDBLASTING SUPERVISOR
[2016-11-29 15:00] VITALS: BP 124/72; PULSE 90; RESP 17; O2SAT 100
--- NOTE | 2016-11-29 16:05 | NUR ---
Pain/Mobility Patient doesn't complain of any pain while lying in bed. Once ROM or any movement of LE occurs, patient is in pain. Treated with APAP 975mg/. Administered prior to therapy treatment. Patient was able to get up to BSC with 2 person assist and FWW. 50% on LLE. Can use call light to ask for assistance, although can get disoriented at times.
--- NOTE | 2016-11-29 16:33 | NUR ---
Social Work: Initial Assessment/Readiness for Discharge/Multidisciplinary Rounds D: EMR reviewed. Please see initial assessment linked for further information. Pt is a 89 y/o female admitted Cindy - no readmit risk score assigned - for pelvic fractures per H&P. SW attempted to meet with pt at bedside to conduct initial assessment. Pt was not alert and oriented. SW placed T/C to pt's son/DPOA Cory Melendez [phone] to complete assessment. SW explained role and confirmed SW wrote phone number on white board in room and left [facility] Discharge Planning Checklist. Pt's son acknowledged. Pt's insurance is Medicare and [employer] Supplemental. PCP is Conrad Roman DO. Pt discussed in multidisciplinary rounds and is not medically stable for discharge at this time, anticipate later today or tomorrow. Pt resides at [facility]. Cork Grinder updated [facility] on pt and is willing to accept pt back with Dr. Roman to follow. [facility] updated that pt may discharge today or tomorrow. SW received MD order for SNF and provided access. A: Pt who resides at [facility] at baseline. Pt's capacity for self-care assessed - pt needs assistance with all ADLs and currently receives assistance at [facility]. P: Pt resides at [facility]. SW to update Noemi at [facility] ([phone]) on day of discharge to coordinate transportation. SW will continue to follow for needs. MARY Castelan Addendum: 11/29/16 at 1638 by PERLITA PETERSON Amended: Links added.
--- NOTE | 2016-11-29 17:05 | DRSVH ---
PROCEDURE: US PELVIC SONOGRAM INDICATIONS: suprapubic pain, cystic focus seen on CT TECHNIQUE: Real-time scanning was performed of the pelvic organs, with image documentation. Additional endovagi nal scanning was necessary due to incomplete visualization of the adnexal and endometrial structures by transabdominal scanning. COMPARISON: [facility], US, PELVIS SONO TRANSVAGINAL (PNL), 08/04/2011, 14:54. FINDINGS: (orthogonal measurements) Left ovary size: 6.78 cm, 5.70 cm, 6.87 cm Transabdominal scanning: Limited scanning through the kidneys shows no hydronephrosis. No pathologi c free abdominal or pelvic fluid. Endovaginal scanning: Uterus: Not visualized. Ovaries: Large simple left adnexal cyst present shows increase over time measuring 6.0 x 6.2 x 5.1 cm . IMPRESSION: Persistent enlarging left adnexal presumed ovarian cyst. Cystic ovarian neoplasm cannot be excluded. Recommend gynecologic consultation and if indicated gynecologic protocol MRI could be p erformed. Dictated by: Joe IBANEZ Interpreted: Chacha Lundberg MD on 11/29/2016 at 10:28 Approved by: Chacha Lundberg M.D. on 11/29/2016 at 17:03
[2016-11-29 19:48] VITALS: BP 138/67; PULSE 61; RESP 18; O2SAT 96
[2016-11-29 20:00] VITALS: PULSE 83
[2016-11-29] MEDS: HYDROcodone-APAP 5-325 mg Tablet PO PRN (22:19)
[2016-11-30] MEDS: Heparin 5,000 Unit/mL Inj SUBQ SCH ×2 (02:30→09:16)
[2016-11-30 06:13] VITALS: BP 146/77; PULSE 82; RESP 20; O2SAT 94
--- NOTE | 2016-11-30 07:11 | NUR ---
BSC Patient not tolerating transfer to BSC, difficult time voiding in bedpan. Alert, but confused to time and place. Bed in low position call light within reach, frequent rounding. Care Continues.
[2016-11-30 08:50] VITALS: BP 162/77; PULSE 85; RESP 20; O2SAT 98
[2016-11-30] MEDS: HYDROcodone-APAP 5-325 mg Tablet PO PRN (09:21)
[2016-11-30 10:01] VITALS: PULSE 78
[2016-11-30] MEDS ORDERED: HYDR-4003 PO (13:07)
--- NOTE | 2016-11-30 13:12 | PCM.PNMED ---
Subjective Date of Service Nov 29, 2016 (late entry) . Subjective Patient seen and examined. No complaints. Vitals stable Exam Vital Signs Vital Sign - Last Date Time Temp Pulse Resp B/P Pulse Ox O2 Delivery O2 Flow Rate FiO2 11/30/16 10:01 78 11/30/16 08:50 36.8 20 162/77 98 Room Air Intake and Output 11/29/16 11/29/16 11/30/16 Cumulative From/Thru 15:00 23:00 07:00 11/28/16 13:27 - 11/30/16 06:13 Intake Total 550 ml 300 ml 1250 ml Output Total 500 ml 600 ml 1475 ml Balance 50 ml -300 ml -225 ml Intake Oral 550 ml 300 ml 1250 ml Output Urine Total 500 ml 600 ml 1475 ml # Voids 4 4 # Bowel Movements 1 1 2 Exam General: Elderly demented female lying in bed and in no acute distress, well- developed, well-nourished, appropriately interactive. Cardiovascular: Regular rate and rhythm with soft holosystolic murmur. No rubs or gallops appreciated. Pulmonary: Clear to auscultation bilaterally without crackles, wheezes, or rhonchi. Normal respiratory effort with no use of accessory muscles. Abdomen: Soft, nontender, nondistended, bowel sounds present. No hepatosplenomegaly or masses appreciated. Tenderness to palpation suprapubically on the left. Neurological: Cranial nerves grossly intact. Normal muscle strength, tone, and bulk. Reflexes, coordination, and sensory function within normal limits. Known gait impairment and uses FWW. Psychiatric: Normal mood and affect. Alert and oriented to person, place, and time. Lab and Diagnostics Result Diagram: 11/29/16 0505 11/30/16 0530 X-Rays, CTs and MRIs X-RAY LEFT HIP COMPLETE, MINIMUM TWO VIEWS IMPRESSION: Superior and inferior pubic rami fractures on the left. Hip appears intact. Dictated by: Chacha Lundberg M.D. on 11/28/2016 at 14:38 CT HIP LEFT W/O CONTRAST IMPRESSION: 1. Right superior and inferior pubic rami fractures, as well as a very minimal extension into the left acetabulum as above. In addition, there is an adjacent hematoma. 2. Central pelvic low attenuation structure as above most consistent with a cystic focus. While this could represent a midline adnexal cystic lesion such as cyst or even cystic neoplasm, other pelvic etiologies of cystic mass cannot be excluded. As clinically indicated, pelvic ultrasound may be obtained to further delineate relationship to the adnexal region. Dictated by: Chacha Lundberg M.D. on 11/28/2016 at 15:58 . Assessment & Plan Deepa Melendez is an 89-year-old poor historian female with past medical history significant for dementia, SIADH unclear etiology, hypertension, and paroxysmal atrial fibrillation who presented to [facility] emergency Department after she endured a ground-level fall with left hip pain. 1. Acute superior and inferior pubic rami fractures on the left with hematoma, present on admission. Active. - Patient presented after ground-level fall with acute left hip pain. Afebrile with leukocytosis which is likely reactive in etiology. - Differential diagnosis includes: mechanical fall versus syncope secondary to aortic stenosis versus possible UTI versus dehydration and hypotension secondary to SIADH. - Hip x-ray and CT hip demonstrated superior and inferior pubic rami fractures with slight extension to the acetabulum on the left with hematoma, as above - Ordered physical therapy. - Ordered urinalysis with culture if indicated, pending. - TSH and free T4 within normal limits, as above. - Ordered Tylenol 975 mg every 6 hours as needed for [id number] pain and hydrocodone 5-325 mg every 4 hours as needed for severe pain. - Orthopedic surgeon was consulted, Dr. Anand , who recommends 50% weightbearing , monitoring of hemodynamics, and physical therapy. Follow up in 6 weeks for recheck and xrays 2. Incidental central pelvic cystic focus, under evaluation. Active. - CT hip demonstrated central pelvic low attenuation structure as above most consistent with a cystic focus, as above. - US noted for ovarian cyst. Discussed with son, who agrees with an outpatient follow up within a week with manager massage department to determine the next step - no acute interventions at this point Chronic problems: 3. Osteoporosis, present on admission. - Patient is on Prolia as an outpatient ever 6 months. - We appreciate orthopedic recommendations. 4. SIADH, unclear etiology, present on admission. Presumed stable. - Unclear etiology but may be secondary to patient's SSRI versus underlying neoplasm. - Placed fluid restriction of 1500ml 5. Dementia, present on admission. Stable. - Reorientation frequently. 6. Hypertension, present on admission. Stable. - Continue losartan 100 mg daily and diltiazem 120 mg daily. 7. Urge incontinence, present on admission. Stable. - Continue tamsulosin 0.4 mg daily at bedtime. 8. Paroxysmal atrial fibrillation, present on admission. Stable. - Continue diltiazem 120 mg daily. 9. Depression, present on admission. Stable. - Continue citalopram 10 mg daily. 10. Hypothyroidism, present on admission. Stable. - Continue levothyroxine 112 g daily. - TSH and free T4 within normal limits, as above. . VTE Prophylaxis: Sub-Q Heparin (Unfractionated) VTE Mechanical Devices: Intermittant Pneumatic CD Resuscitation Status: Limited Interventions (DO NOT INTUBATE) Time spent 35 mins Sumeet Bridges MD Nov 30, 2016 13:09
[2016-11-30 13:13] VITALS: BP 114/70; PULSE 85; RESP 20; O2SAT 96
--- NOTE | 2016-11-30 13:15 | PCM.DC.MED ---
Discharge Summary Date of Service Nov 30, 2016 Dates of Hospitalization Date of Hospital Admission Nov 28, 2016 at 17:44 Date of Discharge: Nov 30, 2016 Providers: Admitting Physician: Branden Cornejo MD Primary Care Physician: Conrad Roman DO Attending Physician: Branden Cornejo MD Diagnosis at Time of Discharge Diagnosis at Time of Discharge Left inferior superior pubic ramus fracture at the pubic root. Procedures XRay, CTs & MRIs X-RAY LEFT HIP COMPLETE, MINIMUM TWO VIEWS IMPRESSION: Superior and inferior pubic rami fractures on the left. Hip appears intact. Dictated by: Chacha Lundberg M.D. on 11/28/2016 at 14:38 CT HIP LEFT W/O CONTRAST IMPRESSION: 1. Right superior and inferior pubic rami fractures, as well as a very minimal extension into the left acetabulum as above. In addition, there is an adjacent hematoma. 2. Central pelvic low attenuation structure as above most consistent with a cystic focus. While this could represent a midline adnexal cystic lesion such as cyst or even cystic neoplasm, other pelvic etiologies of cystic mass cannot be excluded. As clinically indicated, pelvic ultrasound may be obtained to further delineate relationship to the adnexal region. Dictated by: Chacha Lundberg M.D. on 11/28/2016 at 15:58 . Brief History Deepa Melendez is an 89-year-old poor historian female with past medical history significant for dementia, SIADH unclear etiology, hypertension, and paroxysmal atrial fibrillation who presented to [facility] emergency Department from [facility] after she endured a ground- level fall with left hip pain. Due to the patient's underlying dementia the majority of the history of present illness was obtained from her son at the bedside. The patient's son reports that she had an unwitnessed ground level fall today. She endured some minor trauma to her head and has a small bruise on the left [place] border of her mouth. It was reported that she did not lose consciousness. She denies headache, vision changes, lightheadedness or dizziness, sore throat, cough, chest pain, shortness of breath, abdominal pain, nausea, vomiting, fever, chills, dysuria, constipation or diarrhea. She does endorse left hip pain with movement. She is comfortable at rest. Vital signs in the ER: Temperature 37.4. Pulse 90. Respiratory rate 24. Blood pressure 133/88. Pulse ox 96% room air. She received acetaminophen PO 975 mg 1 in the ED. PCP is Dr. Conrad Roman. Hospital Course Deepa Melendez is an 89-year-old poor historian female with past medical history significant for dementia, SIADH unclear etiology, hypertension, and paroxysmal atrial fibrillation who presented to [facility] emergency Department after she endured a ground-level fall with left hip pain. 1. Acute superior and inferior pubic rami fractures on the left with hematoma, present on admission. Active. - Patient presented after ground-level fall with acute left hip pain. Afebrile with leukocytosis which is likely reactive in etiology. - Differential diagnosis includes: mechanical fall versus syncope secondary to aortic stenosis versus possible UTI versus dehydration and hypotension secondary to SIADH. - Hip x-ray and CT hip demonstrated superior and inferior pubic rami fractures with slight extension to the acetabulum on the left with hematoma, as above - Physical therapy at [place] - TSH and free T4 within normal limits, as above. - Ordered Tylenol 975 mg every 6 hours as needed for [id number] pain and hydrocodone 5-325 mg every 4 hours as needed for severe pain. - Orthopedic surgeon was consulted, Dr. Anand , who recommends 50% weightbearing , monitoring of hemodynamics, and physical therapy. Follow up in 6 weeks for recheck and xrays 2. Incidental central pelvic cystic focus, under evaluation. Active. - CT hip demonstrated central pelvic low attenuation structure as above most consistent with a cystic focus, as above. - US noted for ovarian cyst. Discussed with son, who agrees with an outpatient follow up within a week with real estate appraiser supervisor to determine the next step - no acute interventions at this point Chronic problems: 3. Osteoporosis, present on admission. - Patient is on Prolia as an outpatient ever 6 months. - We appreciate orthopedic recommendations. 4. SIADH, unclear etiology, present on admission. Presumed stable. - Unclear etiology but may be secondary to patient's SSRI versus underlying neoplasm. - Placed fluid restriction of 1500ml 5. Dementia, present on admission. Stable. - Reorientation frequently. 6. Hypertension, present on admission. Stable. - Continue losartan 100 mg daily and diltiazem 120 mg daily. 7. Urge incontinence, present on admission. Stable. - Continue tamsulosin 0.4 mg daily at bedtime. 8. Paroxysmal atrial fibrillation, present on admission. Stable. - Continue diltiazem 120 mg daily. 9. Depression, present on admission. Stable. - Continue citalopram 10 mg daily. 10. Hypothyroidism, present on admission. Stable. - Continue levothyroxine 112 g daily. - TSH and free T4 within normal limits, as above. . Exam Vital Signs (Last) Date Time Temp Pulse Resp B/P Pulse Ox O2 Delivery O2 Flow Rate FiO2 11/30/16 10:01 78 11/30/16 08:50 36.8 20 162/77 98 Room Air Test 11/28/16 16:22 11/28/16 18:25 11/28/16 18:58 11/29/16 05:05 Hemoglobin A1c 5.2% (4.8-5.6) Magnesium Level 1.7mg/dL (1.6-2.6) Total Bilirubin 0.9mg/dL (0.0-1.2) Aspartate Amino Transf (AST/SGOT) 24U/L (0-50) Alanine Aminotransferase (ALT/SGPT) 16U/L (0-32) Alkaline Phosphatase 62U/L (25-165) Total Protein 7.8g/dL (6.4-8.4) Albumin 3.5g/dL (3.4-5.0) Thyroid Stimulating Hormone (TSH) 2.990uIU/mL (0.450-4.500) Free Thyroxine 1.52ng/dL (0.82-1.77) Hold Vasquez Top Tube Received (Received) Hold Urine Received (Received) Urine Color Yellow (YELLOW) Urine Appearance Clear (CLEAR,HAZY) Urine pH 6.0 (5.0-8.0) Urine Specific Morgan 1.015 (1.003-1.035) Urine Protein Negativemg/dL (NEG,TRACE) Urine Glucose (UA) Negativemg/dL (NEGATIVE) Urine Ketones Negativemg/dL (NEGATIVE) Urine Occult Blood Negative (NEGATIVE) Urine Nitrite Negative (NEGATIVE) Urine Bilirubin Negative (NEGATIVE) Urine Urobilinogen Normalmg/dL (NORMAL) Urine Leukocyte Esterase Negative (NEGATIVE) Urine RBC 0-2/hpf (0-2) Urine WBC 0-5/hpf (0-5) Urine Epithelial Cells Few/hpf (NONE-MOD) Urine Crystals None seen (NONE SEEN) Urine Bacteria Few/hpf (NONE-FEW) Urine Hyaline Casts None/lpf (NONE) Urine Granular Casts None seen (NONE SEEN) Urine Waxy Casts None seen (NONE SEEN) Urine Red Blood Cell Casts None seen (NONE SEEN) Urine White Blood Cell Casts None seen (NONE SEEN) Urine Mucus None seen (None Seen) Urine Trichomonas None seen (NONE SEEN) Urine Yeast None (NONE SEEN) Urinalysis Comment None Urine Culture Reflexed Not indicated White Blood Count 11.9th/mm3 (3.8-10.1) Red Blood Count 3.32mil/mm3 (3.90-5.20) Hemoglobin 9.4g/dL (12.0-15.6) Hematocrit 29.2% (35.0-46.0) Mean Corpuscular Volume 88.0fL (81-100) Mean Corpuscular Hemoglobin 28.3pg (27.0-35.0) Mean Corpuscular Hemoglobin Concent 32.2% (32.0-37.0) Red Cell Distribution Width 13.6% (12.3-15.4) Platelet Count 181bil/L (150-400) Neutrophils (%) (Auto) 71.5% (40-74) Lymphocytes (%) (Auto) 15.9% (14-46) Monocytes (%) (Auto) 10.8% (4-12) Eosinophils (%) (Auto) 1.2% (0-5) Basophils (%) (Auto) 0.3% (0-3) Test 11/30/16 05:30 Sodium Level 131mEq/L (134-144) Potassium Level 3.8mEq/L (3.5-5.2) Chloride Level 94mEq/L (97-108) Carbon Dioxide Level 28mmol/L (18-29) Blood Urea Nitrogen 24mg/dL (8-27) Creatinine 0.64mg/dL (0.57-1.00) Estimat Glomerular Filtration Rate 125mL/min (>59) Glucose Level 89mg/dL (60-99) Calcium Level 8.8mg/dL (8.5-10.1) Discharge Medications Discharge Medications Ascorbate Calcium (Vitamin C) 500 Mg Tablet 1,000 MG PO DAILY (Reported) Calcium Carbonate (Calcium) 600 Mg Tablet 600 MG PO DAILY (Reported) Cholecalciferol (Vitamin D3) (Vitamin D3) 2,000 Unit Tablet 2,000 UNIT PO QAM ( Reported) Citalopram (Citalopram) 10 Mg Tablet 10 MG PO QAM (Reported) Cyanocobalamin (Vitamin B12) 500 Mcg Tablet 500 MCG PO QAM (Reported) Denosumab (Prolia) 60 Mg/1 Ml Syringe 60 MG SQ q8lccslq (Reported) Diltiazem ER (Diltiazem ER) 120 Mg Cap.er.24h 120 MG PO QAM (Reported) Gluc/Eyal-MSM#1/Vit C/James/Bor (Jwoxnvf-Spths-ITE Complex Cplt) 1 Each Tablet 1 EACH PO DAILY (Reported) Levothyroxine (Levothyroxine) 112 Mcg Tablet 112 MCG PO DAILY (Reported) Losartan Potassium (Losartan Potassium) 100 Mg Tablet 100 MG PO QAM (Reported) Multivitamin (Once Daily) 1 Each Tablet 1 EACH PO DAILY (Reported) [place]-3/Dha/Epa/Fish Oil (Fish Oil 1,000 mg Softgel) 1 Each Capsule 1 EACH PO QAM (Reported) Tamsulosin (Flomax) 0.4 Mg Capsule 0.4 MG PO HS (Reported) As needed Acetaminophen (Acetaminophen) 325 Mg Tablet 325-650 MG PO q4 hours PRN PRN For Pain (Reported) Bisacodyl (Dulcolax Rectal) 10 Mg Supp.rect 10 MG RC DAILY PRN PRN no bm x 12 shifts (Reported) Hydrocodone-Acetaminophen 5-325 mg (Hydrocodone-Acetaminophen 5-325 mg) 1 Each Tablet 1 TABLET PO Q4 PRN PRN For Mild Pain Prescribed by: BRANDEN CORNEJO MD Magnesium Hydroxide (Milk of Magnesia) 400 Mg/5 Ml Oral.susp 30 ML PO prn PRN PRN no BM in 9 shifts. (Reported) Na Phos,M-B/Na Phos,Di-Ba (Fleet Enema) 133 Ml Enema 133 ML RC prn PRN PRN no BM x 15 shifts. (Reported) Followup Plan Discharge Diet: Heart Healthy, Other (Free water restriction upto 1500ml) Discharge Activity: Other (Physical therapy at [place] ) Patient Instructions Recommend 50% partial weightbearing with a walker, working with physical therapy for a likely period of six weeks, with recheck and x-rays at that time. Follow-up with PCP in: 1 week Provider: John Anand DO Follow-up in: 6 weeks Time spent 35 mins Branden Cornejo MD Nov 30, 2016 13:15
--- NOTE | 2016-11-30 13:20 | NUR ---
Social Work- Discharge/Multidisciplinary Rounds Data: EMR reviewed. Pt is on day 2 of hospitalization for pelvic fracture per H&P. Pt discussed in multidisciplinary rounds, pt is medically ready for discharge. HHPT orders acknowledged. Discharge orders are active. T/C to Hellen at [facility] regarding pt's discharge. Hellen is agreeable to pt returning today. Pt resides at [facility] LT on the SNF side and for this reason is not able to have HH services come to the unit. Hellen requested MD to write for PT/OT evaluation and then this will be arranged with outpt services and billed to [facility]. MD informed and agreeable. No action for HHPT taken at this time. [facility] created discharge packet and faxed orders. Per Hellen at [facility], Kaylene will arrive to cone picker patient between 1530 and 1545 with a wheelchair van. Message left for RN on Vocera. Pt's son Cory updated regarding discharge. Cory agreeable. Pt to d/c between 1530 and [address] [facility] via wheelchair van. RN, pt/family, and [facility] all updated and agreeable to plan. Assessment: Pt for whom SNF is medically necessary Plan: Pt to d/c back to [facility] between [id number] via wheelchair van provided by facility. RN, pt/family, and [facility] all updated and agreeable to plan. MARY Alvarenga
--- NOTE | 2016-11-30 13:30 | NUR ---
CUSTODIAL TRANSFER : Faxed orders to [facility] and placed copy in the chart, per [employer] patient is being transported by [facility] between [id number]
--- NOTE | 2016-11-30 15:35 | NUR ---
DISCHARGE Patient discharged transferred to [facility] at 1515, transport provided by facility. Report given to Jessa SMITH at [facility], patient denies shortness of breath, nausea, and chest pain. Patient is voiding and had BM today, pelvic pain with movement, 2PA with 50% non weight bearing transfer. Son Cory called and made aware of transfer ([phone]).
== END 2016-11-30 14:30 ==
LOC: EDBD 12:47 → EDUNIT# 12:47 → SED 12:47 → INTOOBSV 17:44 → OSC 17:44
PROVIDERS: ADMIT Internal Medicine; ATTEND Internal Medicine
DX: S32.512A Fracture of superior rim of left pubis, initial encounter for closed fracture (principal); S32.592A Other specified fracture of left pubis, initial encounter for closed fracture; I10 Essential (primary) hypertension; I35.0 Nonrheumatic aortic (valve) stenosis; I48.0 Paroxysmal atrial fibrillation; M19.90 Unspecified osteoarthritis, unspecified site; M06.9 Rheumatoid arthritis, unspecified; F03.90 Unspecified dementia, unspecified severity, without behavioral disturbance, psychotic disturbance, mood disturbance, and anxiety; E22.2 Syndrome of inappropriate secretion of antidiuretic hormone; M81.0 Age-related osteoporosis without current pathological fracture; F32.9 Major depressive disorder, single episode, unspecified; W18.39XA Other fall on same level, initial encounter; Y93.01 Activity, walking, marching and hiking; Y92.129 Unspecified place in nursing home as the place of occurrence of the external cause; Y99.8 Other external cause status; Z88.8 Allergy status to other drugs, medicaments and biological substances
CPT/HCPCS: 36415; 73502; 73700; 76856; 80048; 80053; 81000; 83036; 83735; 84439; 84443; 85025; 96372; 96374; 97162; 97530; 99285; G0378; G8978; G8979; J1644; J1885